=== PATIENT | female | born 1940 | race Caucasian/White ===

== ENCOUNTER → 2016-11-16 | Outpatient (CLI) | payer MEDICARE, BC ==
--- NOTE | 2016-11-16 16:26 | US ---
LOWER EXTREMITY VENOUS INSUFFICIENCY SIDE PERFORMED: Bilateral 1) Color flow is present and patency is documented in the following vessels. No DVT or SVT is noted . ? EIV ? Common Femoral Vein ? Deep Femoral Vein ? Femoral Vein ? Popliteal Vein ? Proximal Calf Veins ? Greater Saph Vein ? Upper Small Saph Vein 2) There is venous reflux noted at the following venous levels: Right GSV, left GSV, and left SSV No popliteal fossa lesion is seen. IMPRESSION: REFLUX DESCRIBED.
--- NOTE | 2016-11-21 12:11 | P.ARTDOP ---
Arterial Doppler LOWER EXTREMITY ARTERIAL DOPPLER: DATE OF SERVICE: 11/16/2016 Reason for study: Right ankle ulcer Doppler waveforms: Multiphasic throughout on the left and to the tibial on the right. Dorsalis pedis on the right is monophasic. Pulse volume recording: Normal configuration to the metatarsal and digital level which are both very blunted. Pressure gradients: Mild gradient above the ankle on the left and no gradient on the right above the ankle level. Significant gradient to the foot level.. Ankle-brachial indices: Greater than 1 on the right. 0.8 for the left.. Toe pressures: 31 on the right, 31 on the left Impression: Proximal at the ankle above the studies looked fairly normal. At the toe level they are severely blunted which is either vasospastic or severe distal disease. Clinical correlation recommended..
== END | disposition home or self-care (01) ==
LOC: RADUSWWP 14:18
PROVIDERS: ATTEND Family Medicine
DX: I87.2 Venous insufficiency (chronic) (peripheral) (principal); M79.604 Pain in right leg
CPT/HCPCS: 93923; 93970

== ENCOUNTER 2018-09-14 17:19 | Inpatient (IN) | payer MEDICARE, BC ==
[2018-09-14] MEDS ORDERED: MORPHINE SULFATE 4 MG/ML SYRINGE IV STA (17:34)
[2018-09-14] MEDS ORDERED: ONDANSETRON 4 MG/2 ML VIAL IVP STA (17:34)
[2018-09-14] MEDS ORDERED: SODIUM CHLORIDE 0.9% 1,000 ML IV STA (17:34)
[2018-09-14 17:51] LABS: Basophils # (A) 0.1 k/uL (0-0.2); Basophils % (A) 0 %; Eosinophils # (A) 0.1 k/uL (0-0.7); Eosinophils % (A) 1 %; HCT 44.1 % (34.0-46.0); HGB 14.4 gm/dL (11.4-16.0); Lymphocytes # (A) 3.5 k/uL (1.0-4.8); Lymphocytes % (A) 26 %; MCH 29.6 pg (25.0-35.0); MCHC 32.6 g/dL (31.0-37.0); MCV 90.8 fL (80.0-100.0); Mean Platelet Volume 7.1; Monocytes # (A) 0.5 k/uL (0-1.0); Monocytes % (A) 4 %; Neutrophils # (A) 9.2 k/uL (1.3-7.7); Neutrophils % (A) 68 %; Platelet Count 218 k/uL (150-450); RBC 4.86 m/uL (3.80-5.40); RDW 13.8 % (11.5-15.5); WBC 13.6 k/uL (3.8-10.6)
[2018-09-14 18:02] LABS: ALT 35 U/L (9-52); AST 28 U/L (14-36); Albumin 4.2 g/dL (3.5-5.0); Alkaline Phosphatase 58 U/L (38-126); Amylase 55 U/L (30-110); Anion Gap 6 mmol/L; Blood Urea Nitrogen 20 mg/dL (7-17); Calcium 9.6 mg/dL (8.4-10.2); Carbon Dioxide 28 mmol/L (22-30); Chloride 104 mmol/L (98-107); Glucose 121 mg/dL (74-99); Lipase 95 U/L (23-300); Potassium 4.4 mmol/L (3.5-5.1); Sodium 138 mmol/L (137-145); Total Bilirubin 0.8 mg/dL (0.2-1.3)
--- NOTE | 2018-09-14 18:25 | CT ---
EXAMINATION TYPE: CT abdomen pelvis wo con DATE OF EXAM: 09/14/2018 HISTORY: Generalized abdominal and back pain. CT DLP: 468 mGycm. Automated Exposure Control for Dose Reduction was Utilized. TECHNIQUE: CT scan of the abdomen and pelvis is performed without oral or IV contrast. COMPARISON: NONE FINDINGS: Within the limitations of a non-contrast study, the following observations are made. LUNG BASES: Bibasilar scarring versus atelectasis. No suspicious pulmonary nodules or masses. LIVER/GB: No significant abnormality is appreciated. The gallbladder is surgically absent. PANCREAS: No significant abnormality. SPLEEN: No significant abnormality. ADRENALS: No significant abnormality. KIDNEYS: No significant abnormality. Ureters are unremarkable. BOWEL: Stacked loops of dilated small bowel in the right mid abdomen with a scattered air-fluid level s. There is no evidence of focal obstruction or abrupt transition of luminal diameter. There is surro unding mesenteric fat inflammation in this region as well as fecal-type material within these abnorma l loops of small bowel. The large bowel is unremarkable. What is thought to represent the appendix is normal. GENITAL ORGANS: No gross abnormality seen. LYMPH NODES: No greater than 1cm abdominal or pelvic lymph nodes are appreciated. OSSEOUS STRUCTURES: No acute osseous pathology. Unilateral right sided L4-L5 lumbar fusion with assoc iated laminectomy. Multilevel degenerative changes of the spine and hips. Surgical clips are seen in the right inguinal region. VESSELS: Atheromatous plaquing throughout the abdominal aorta and its branches. IMPRESSION: 1. Moderately dilated loops of small bowel with air-fluid levels in the right mid abdomen and surroun ding mesenteric inflammatory changes. Small bowel feces sign is also present at this location. Etiolo gies may relate to early obstruction versus ileus. Serial radiographs are recommended. Small bowel fo llow-through study may be of further diagnostic value. 2. Postsurgical changes.
[2018-09-14] MEDS ORDERED: ONDANSETRON 4 MG/2 ML VIAL IVP PRN (19:25)
[2018-09-14] MEDS ORDERED: NALOXONE 0.4 MG/ML 1 ML VIAL IV PRN (19:25)
[2018-09-14] MEDS ORDERED: MORPHINE SULFATE 4 MG/ML SYRINGE IV PRN (19:25)
--- NOTE | 2018-09-14 19:25 | ED ---
Abdominal Pain HPI <Jhony Sultana - Last Filed: 09/14/18 19:31> - General Source: patient, RN notes reviewed Mode of arrival: ambulatory Limitations: no limitations <Bruce Dc - Last Filed: 09/14/18 19:38> - General Chief Complaint: Abdominal Pain Stated Complaint: Abd Pain Time Seen by Provider: 09/14/18 17:30 - History of Present Illness Initial Comments: 78-year-old female sent emergency Department chief complaint abdominal pain. Patient states that started around 11 PM last night states has continued. Patient states that she's had decreased output normally has a bowel movement today but states that she only had one maybe 2 small ones. Patient states she feels bloated, distended. Patient had nausea no vomiting. Patient had bowel resection secondary to perforated bowel from prior hysterectomy. Patient is also cholecystectomy. No recent surgery history. Does not see a current surgeon. Patient reports no dysuria no hematuria. (Bruce Dc) - Related Data Home Medications Medication Instructions Recorded Confirmed Cholecalciferol [Vitamin D3] 5,000 unit PO DAILY@1200 01/16/14 09/14/18 Loratadine [Claritin] 10 mg PO DAILY 01/16/14 09/14/18 Montelukast [Singulair] 10 mg PO DAILY 01/16/14 09/14/18 Omeprazole [PriLOSEC] 20 mg PO DAILY 01/16/14 09/14/18 Telmisartan [Micardis] 40 mg PO DAILY 01/16/14 09/14/18 Ascorbic Acid [Vitamin C] 500 mg PO DAILY 10/31/16 09/14/18 Aspirin [Adult Low Dose Aspirin EC] 81 mg PO Q48H 10/31/16 09/14/18 Calcium Carbonate [Calcium] 600 mg PO BID 10/31/16 09/14/18 HYDROcodone/APAP 5-325MG [[place] 1 tab PO DAILY PRN 10/31/16 09/14/18 5-325] Vitamin B Complex 1 cap PO DAILY 10/31/16 09/14/18 Vitamin E 100 unit PO DAILY 07/09/17 09/14/18 Fluticasone/Salmeterol [Advair 2 puff INHALATION RT-DAILY 09/14/18 09/14/18 500-50 Diskus] Meclizine [Antivert] 25 mg PO TID PRN 09/14/18 09/14/18 sitaGLIPtin [Januvia] 100 mg PO DAILY 09/14/18 09/14/18 Allergies Allergy/AdvReac Type Severity Reaction Status Date / Time iodine AdvReac Itching Verified 09/14/18 18:28 minerals [From Enviro Stress] AdvReac Itching Verified 09/14/18 18:28 propoxyphene HCl AdvReac Unknown Verified 09/14/18 18:28 [From Darvon] Sulfa (Sulfonamide AdvReac Rash/Hives Verified 09/14/18 18:28 Antibiotics) vitamin E (d-alpha AdvReac Itching Verified 09/14/18 18:28 tocopherol) [From Enviro Stress] Review of Systems ROS Other: All systems not noted in ROS Statement are negative. <Jhony Sultana - Last Filed: 09/14/18 19:31> ROS Other: All systems not noted in ROS Statement are negative. <Bruce Dc - Last Filed: 09/14/18 19:38> ROS Statement: Those systems with pertinent positive or pertinent negative responses have been documented in the HPI. Past Medical History Past Medical History: Asthma, Diabetes Mellitus, Fibromyalgia, GERD/Reflux, Hypertension, Osteoarthritis (OA), Skin Disorder Additional Past Medical History / Comment(s): wound rt leg History of Any Multi-Drug Resistant Organisms: None Reported Past Surgical History: Back Surgery, Breast Surgery, Cholecystectomy, Hysterectomy, Orthopedic Surgery, Tonsillectomy Additional Past Surgical History / Comment(s): bowel resection, colostomy with reversal, romeo carpal tunnel and "locked fingers" Past Anesthesia/Blood Transfusion Reactions: Motion Sickness Past Psychological History: No Psychological Hx Reported Smoking Status: Never smoker Past Alcohol Use History: None Reported Past Drug Use History: None Reported - Past Family History Sister(s) Family Medical History: Cancer Additional Family Medical History / Comment(s): breast cancer Mother Family Medical History: Diabetes Mellitus Father Family Medical History: No Reported History <Bruce Dc - Last Filed: 09/14/18 19:38> General Exam Limitations: no limitations General appearance: alert, in no apparent distress Head exam: Present: atraumatic, normocephalic, normal inspection Respiratory exam: Present: normal lung sounds bilaterally. Absent: respiratory distress, wheezes, rales, rhonchi, stridor Cardiovascular Exam: Present: regular rate, normal rhythm, normal heart sounds. Absent: systolic murmur, diastolic murmur, rubs, gallop, clicks GI/Abdominal exam: Present: soft, distended, tenderness (Moderate lower), normal bowel sounds. Absent: guarding, rebound, rigid Back exam: Absent: CVA tenderness (R), CVA tenderness (L) Skin exam: Present: warm, dry, intact, normal color. Absent: rash <Bruce Dc - Last Filed: 09/14/18 19:38> Vital Signs 09/14/18 09/14/18 17:20 18:55 Temperature 98.3 F Pulse Rate 62 96 Respiratory 18 18 Rate Blood Pressure 161/110 132/72 O2 Sat by Pulse 100 98 Oximetry Medical Decision Making - Lab Data Result diagrams: 09/14/18 17:41 09/14/18 17:41 <Jhony Sultana - Last Filed: 09/14/18 19:31> - Lab Data Result diagrams: 09/14/18 17:41 09/14/18 17:41 <Bruce Dc - Last Filed: 09/14/18 19:38> - Medical Decision Making Medical decision making; this is an 78-year-old female here with family. The patient is here because of decreased bowel movements. She does have a small bowel movement today and passed a small amount of gas today. Patient has had multiple surgeries in the past because of bowel obstruction with resection. The patient had labs done which showed a white count of 13.6 hemoglobin 14 hematocrit of 44. The patient's BUN is 20 creatinine 0.61 the GFR 86. The patient's CAT scan was done and the radiologist reports; moderately dilated loops of small bowel with air-fluid levels in the right midabdomen and surrounding mesenteric inflammatory changes. Small bowel feces sign is also present at this location. Etiologies may relate to early obstruction versus ileus. Serial radiographs are recommended. Small bowel follow-through study may be of further diagnostic value. 2 postsurgical changes. As read by Dr. Dietz I examine the patient's abdomen. It is mildly tympanitic with gurgling sounds. Patient feels bloated, mild nausea no vomiting. She states she did pass gas today had a small bowel movement which is less than she normally does. No guarding or referred pain noted on examination at this time. I discussed the case with Dr. Meyers on-call for Dr. Miller. The patient had requested Dr. Platt. Dr. Meyers wants the patient to be kept nothing by mouth, NG tube if she vomits. Rehydration. And consult with Dr. Platt requested. Dr. Sultana (Jhony Sultana) 78-year-old female presented for abdominal pain. CT, lab work were obtained. Evidence of early small bowel obstruction versus ileus. Patient symptoms more consistent with small bowel traction patient will be admitted for IV hydration, pain control, antiemetics. Family is requesting Dr. tran for surgery consult. (Bruce Dc) - Lab Data Lab Results 09/14/18 09/14/18 09/14/18 Range/Units 17:41 17:41 17:41 WBC 13.6 H (3.8-10.6) k/uL RBC 4.86 (3.80-5.40) m/uL Hgb 14.4 (11.4-16.0) gm/dL Hct 44.1 (34.0-46.0) % MCV 90.8 (80.0-100.0) fL MCH 29.6 (25.0-35.0) pg MCHC 32.6 (31.0-37.0) g/dL RDW 13.8 (11.5-15.5) % Plt Count 218 (150-450) k/uL Neutrophils % 68 % Lymphocytes % 26 % Monocytes % 4 % Eosinophils % 1 % Basophils % 0 % Neutrophils # 9.2 H (1.3-7.7) k/uL Lymphocytes # 3.5 (1.0-4.8) k/uL Monocytes # 0.5 (0-1.0) k/uL Eosinophils # 0.1 (0-0.7) k/uL Basophils # 0.1 (0-0.2) k/uL Sodium 138 (137-145) mmol/L Potassium 4.4 (3.5-5.1) mmol/L Chloride 104 (98-107) mmol/L Carbon Dioxide 28 (22-30) mmol/L Anion Gap 6 mmol/L BUN 20 H (7-17) mg/dL Creatinine 0.61 (0.52-1.04) mg/dL Est GFR (CKD-EPI)AfAm >90 (>60 ml/min/1.73 sqM) Est GFR (CKD-EPI)NonAf 86 (>60 ml/min/1.73 sqM) Glucose 121 H (74-99) mg/dL Plasma Lactic Acid Jewel 1.0 (0.7-2.0) mmol/L Calcium 9.6 (8.4-10.2) mg/dL Total Bilirubin 0.8 (0.2-1.3) mg/dL AST 28 (14-36) U/L ALT 35 (9-52) U/L Alkaline Phosphatase 58 (38-126) U/L Total Protein 7.0 (6.3-8.2) g/dL Albumin 4.2 (3.5-5.0) g/dL Amylase 55 (30-110) U/L Lipase 95 (23-300) U/L Disposition <Jhony Sultana - Last Filed: 09/14/18 19:31> <Bruce Dc - Last Filed: 09/14/18 19:38> Clinical Impression: Abdominal pain, Small bowel obstruction Disposition: ADMITTED IP TO THIS [facility] Condition: Stable Referrals: Armani Miller MD [Primary Care Provider] - 1-2 days
[2018-09-14] MEDS: SODIUM CHLORIDE 0.9% 1,000 ML IV SCH (19:58)
[2018-09-14 21:16] LABS: Appearance,Urine Clear (Clear); Bilirubin,Urine Negative (Negative); Blood,Urine Negative (Negative); Color,Urine Light Yellow; Glucose,Urine (UA) Negative (Negative); Ketones,Urine Negative (Negative); Leukocyte Esterase,Urine Small (Negative); Mucus,Urine Occasional /hpf; Nitrite,Urine Negative (Negative); Protein,Urine Negative (Negative); Squamous Epithelial Cell,Urine <1 /hpf (0-4); Urobilinogen,Urine <2.0 mg/dL (<2.0); WBC,Urine 2 /hpf (0-5)
[2018-09-15] MEDS: PANTOPRAZOLE 40 MG/10 ML VIAL IV SCH (07:43)
[2018-09-15] MEDS: SODIUM CHLORIDE 0.9% 1,000 ML IV SCH ×2 (07:45→21:23)
[2018-09-15 11:14] LABS: Glucose,Whole Blood 81 mg/dL (75-99)
[2018-09-15] MEDS: INSULIN ASPART 100 UNIT/ML 1 ML 10 ML VIAL SQ SCH ×3 (11:39→21:22)
[2018-09-15] MEDS: LEVOFLOXACIN 500MG-D5W PMX 500 MG in DEXTROSE/WATER 1 100ML.BAG IVPB SCH (13:18)
--- NOTE | 2018-09-15 13:18 | XR ---
EXAMINATION TYPE: XR abdomen 2V DATE OF EXAM: 09/15/2018 12:59 PM CLINICAL HISTORY: Abdominal pain. Follow-up for ileus. TECHNIQUE: Single supine KUB image of the abdomen is obtained. COMPARISON: CT dated 09/14/2018. FINDINGS: Scattered gas is seen in nondilated small bowel loops. Gas and fecal material is seen in no ndilated colon. Cholecystectomy clips are noted in the right upper quadrant. Postsurgical changes are seen of the lower lumbar spine. Surgical clips are also seen within the right breast and within the right low pelvis. Heterotopic ossification is noted of the iliac crests. The lung bases are clear and the osseous structures are intact. IMPRESSION: No dilated loops of large or small bowel. Nonobstructive bowel gas pattern.
--- NOTE | 2018-09-15 13:51 | P.GSCN ---
History of Present Illness Consult date: 09/15/18 Reason for Consult: Small bowel obstruction History of present illness: Patient presents to the hospital with a less than 24 hour history of abdominal pain. Pain described as being diffuse and crampy at times. Slightly increased in the right lower abdomen. Patient is a history of multiple bowel surgeries including colostomy and colostomy reversal. She has had previous obstructions. She states her last bowel obstruction was treated nonoperatively. She is not sure how long ago that was however. Patient typically has 2-3 bowel movements per day but has noticeable decline in her bowel function over the last 2-3 days. Some nausea but no vomiting. Abdominal CAT scan was performed after she presented to the ER. CAT scan shows dilated proximal small bowel loops. Transition point right lower quadrant suspected. Small bowel obstruction thought likely related to adhesions. White blood cell count slightly elevated at 13. She appears more comfortable today. Has not had any narcotics since reaching the floor. Review of Systems The patient denies any acute changes in vision or hearing, no dysphagia or odynophagia, no chest pain or shortness of breath, no dysuria or hematuria, no headache, no runny nose, no rectal bleeding or melena, no unexplained weight loss Past Medical History Past Medical History: Asthma, Diabetes Mellitus, Fibromyalgia, GERD/Reflux, Hypertension, Osteoarthritis (OA), Skin Disorder Additional Past Medical History / Comment(s): wound rt leg History of Any Multi-Drug Resistant Organisms: None Reported Past Surgical History: Back Surgery, Breast Surgery, Cholecystectomy, Hysterectomy, Orthopedic Surgery, Tonsillectomy Additional Past Surgical History / Comment(s): bowel resection, colostomy with reversal, romeo carpal tunnel and "locked fingers" Past Anesthesia/Blood Transfusion Reactions: Motion Sickness Past Psychological History: No Psychological Hx Reported Smoking Status: Never smoker Past Alcohol Use History: None Reported Past Drug Use History: None Reported - Past Family History Sister(s) Family Medical History: Cancer Additional Family Medical History / Comment(s): breast cancer Mother Family Medical History: Diabetes Mellitus Father Family Medical History: No Reported History Medications and Allergies Home Medications Medication Instructions Recorded Confirmed Type Cholecalciferol [Vitamin D3] 5,000 unit PO DAILY@1200 01/16/14 09/14/18 History Loratadine [Claritin] 10 mg PO DAILY 01/16/14 09/14/18 History Montelukast [Singulair] 10 mg PO DAILY 01/16/14 09/14/18 History Omeprazole [PriLOSEC] 20 mg PO DAILY 01/16/14 09/14/18 History Telmisartan [Micardis] 40 mg PO DAILY 01/16/14 09/14/18 History Ascorbic Acid [Vitamin C] 500 mg PO DAILY 10/31/16 09/14/18 History Aspirin [Adult Low Dose Aspirin EC] 81 mg PO Q48H 10/31/16 09/14/18 History Calcium Carbonate [Calcium] 600 mg PO BID 10/31/16 09/14/18 History HYDROcodone/APAP 5-325MG [[place] 1 tab PO DAILY PRN 10/31/16 09/14/18 History 5-325] Vitamin B Complex 1 cap PO DAILY 10/31/16 09/14/18 History Vitamin E 100 unit PO DAILY 07/09/17 09/14/18 History Fluticasone/Salmeterol [Advair 2 puff INHALATION RT-DAILY 09/14/18 09/14/18 History 500-50 Diskus] Meclizine [Antivert] 25 mg PO TID PRN 09/14/18 09/14/18 History sitaGLIPtin [Januvia] 100 mg PO DAILY 09/14/18 09/14/18 History Allergies Allergy/AdvReac Type Severity Reaction Status Date / Time iodine AdvReac Itching Verified 09/14/18 18:28 minerals [From Enviro Stress] AdvReac Itching Verified 09/14/18 18:28 propoxyphene HCl AdvReac Unknown Verified 09/14/18 18:28 [From Darvon] Sulfa (Sulfonamide AdvReac Rash/Hives Verified 09/14/18 18:28 Antibiotics) vitamin E (d-alpha AdvReac Itching Verified 09/14/18 18:28 tocopherol) [From Enviro Stress] Surgical - Exam Vital Signs Temp Pulse Resp BP Pulse Ox 98.3 F 62 18 161/110 100 09/14/18 17:20 09/14/18 17:20 09/14/18 17:20 09/14/18 17:20 09/14/18 17:20 Physical exam: General: Well-developed, well-nourished HEENT: Normocephalic, sclerae nonicteric Abdomen: Mild distention, mild diffuse tenderness increased right lower quadrant Extremities: No edema Neuro: Alert and oriented Results - Labs 09/14/18 17:41 09/14/18 17:41 Abnormal Lab Results - Last 24 Hours (Table) 09/14/18 09/14/18 09/14/18 Range/Units 17:41 17:41 19:45 WBC 13.6 H (3.8-10.6) k/uL Neutrophils # 9.2 H (1.3-7.7) k/uL BUN 20 H (7-17) mg/dL Glucose 121 H (74-99) mg/dL Ur Leukocyte Esterase Small H (Negative) Urine Mucus Occasional H (None) /hpf Diabetes panel 09/14/18 Range/Units 17:41 Sodium 138 (137-145) mmol/L Potassium 4.4 (3.5-5.1) mmol/L Chloride 104 (98-107) mmol/L Carbon Dioxide 28 (22-30) mmol/L BUN 20 H (7-17) mg/dL Creatinine 0.61 (0.52-1.04) mg/dL Glucose 121 H (74-99) mg/dL Calcium 9.6 (8.4-10.2) mg/dL AST 28 (14-36) U/L ALT 35 (9-52) U/L Alkaline Phosphatase 58 (38-126) U/L Total Protein 7.0 (6.3-8.2) g/dL Albumin 4.2 (3.5-5.0) g/dL Calcium panel 09/14/18 Range/Units 17:41 Calcium 9.6 (8.4-10.2) mg/dL Albumin 4.2 (3.5-5.0) g/dL Pituitary panel 09/14/18 Range/Units 17:41 Sodium 138 (137-145) mmol/L Potassium 4.4 (3.5-5.1) mmol/L Chloride 104 (98-107) mmol/L Carbon Dioxide 28 (22-30) mmol/L BUN 20 H (7-17) mg/dL Creatinine 0.61 (0.52-1.04) mg/dL Glucose 121 H (74-99) mg/dL Calcium 9.6 (8.4-10.2) mg/dL Adrenal panel 09/14/18 Range/Units 17:41 Sodium 138 (137-145) mmol/L Potassium 4.4 (3.5-5.1) mmol/L Chloride 104 (98-107) mmol/L Carbon Dioxide 28 (22-30) mmol/L BUN 20 H (7-17) mg/dL Creatinine 0.61 (0.52-1.04) mg/dL Glucose 121 H (74-99) mg/dL Calcium 9.6 (8.4-10.2) mg/dL Total Bilirubin 0.8 (0.2-1.3) mg/dL AST 28 (14-36) U/L ALT 35 (9-52) U/L Alkaline Phosphatase 58 (38-126) U/L Total Protein 7.0 (6.3-8.2) g/dL Albumin 4.2 (3.5-5.0) g/dL Assessment and Plan Assessment: Impression: Small bowel obstruction secondary to adhesions Plan: Continue nothing by mouth except for ice chips. Ambulate. Repeat abdominal x-rays performed this afternoon showed a nonobstructive gas pattern which is encouraging but still does not eliminate the possibility of persistent underlying small bowel obstruction. Repeat labs tomorrow. We'll follow closely with you.
[2018-09-15] MEDS ORDERED: ENALAPRILAT 1.25 MG/ML 1 ML VIAL IVP PRN (13:58)
--- NOTE | 2018-09-15 14:02 | P.HPIM ---
History of Present Illness H&P Date: 09/15/18 Chief Complaint: Abdominal pain This is a pleasant 78-year-old female patient of Dr. Miller. She has underlying history of diabetes mellitus type 2, fibromyalgia, asthma, hypertension Osteoarthritis. She presents emergency room with acute abdominal pain, generalized nature. Pain more towards the right lower quadrant area, started at 11 PM last night. Patient has prior episode of bowel perforation from 40 years ago as a result from complicated hysterectomy, similar episode 20 years ago. She had any bowel resection 40 years ago approximately 1 foot was taken out as result of the complicated hysterectomy. Patient presents with increasing abdominal pain with nausea and abdominal discomfort patient has no emesis however she does have some nausea and abdominal distention. No fever no chills, patient denies any hematuria or melena hematochezia. Patient was seen in the emergency room for which imaging studies were done showing stacked loops of dilated bowel sounds in the right mid abdomen with scattered air-fluid levels, no evidence of focal obstruction or abrupt transition point in the luminal diameter, there is surrounding mesenteric fat inflammation this region as well as fecal-type material within this abnormal loops of bowels or large bowel is unremarkable, what was thought to present the appendix is normal there is bibasilar scarring against atelectasis, no pulmonary nodules, spleen and adrenals kidneys are unremarkable there's also unilateral right-sided L4-L5 lumbar fusion with associated laminectomy, suspicion of early obstruction against ileus. WBC 13.6, creatinine 0.6, liver function test is normal urinalysis is normal lipase is normal. Patient was admitted with consultation to Gen. surgery Dr. Castro patient is made nothing by mouth. She is concerned about the [place] trip coming up this Saturday Review of Systems Constitutional: Reports as per HPI, Reports chills, Denies anorexia, Denies chronic headaches, Denies chronic pain, Denies daytime sleepiness, Denies fatigue, Denies fever, Denies lethargy, Denies malaise, Denies night sweats, Denies poor appetite, Denies sweats, Denies weakness, Denies weight gain, Denies weight loss Ears, nose, mouth and throat: Reports as per HPI, Denies ant. neck pain, Denies bleeding gums, Denies dental pain, Denies dysphagia, Denies epistaxis, Denies headache, Denies hoarseness, Denies mouth pain, Denies nasal congestion, Denies nasal discharge, Denies neck fullness/pressure, Denies neck lump, Denies nose pain, Denies odynophagia, Denies post-nasal drip, Denies sinus pain, Denies sinus pressure, Denies swelling in mouth, Denies swelling in throat, Denies sore throat, Denies vertigo, Denies voice changes Cardiovascular: Reports as per HPI, Denies chest pain, Denies claudication, Denies decreased exercise tolerance, Denies dyspnea on exertion, Denies edema, Denies high blood pressure, Denies irregular heart beat, Denies leg edema, Denies lightheadedness, Denies orthopnea, Denies palpitations, Denies paroxysmal nocturnal dyspnea, Denies phlebitis, Denies rapid heart beat, Denies shortness of breath, Denies syncope Respiratory: Reports as per HPI, Denies congestion, Denies cough, Denies cough with sputum, Denies dyspnea, Denies excessive sputum, Denies hemoptysis, Denies home oxygen, Denies pain, Denies pain on inspiration, Denies pleurisy, Denies respiratory infections, Denies sleep apnea, Denies snoring, Denies wheezing Gastrointestinal: Reports as per HPI, Reports abdominal pain, Reports belching, Reports bloating, Reports change in bowel habits, Reports constipation, Reports indigestion, Reports nausea, Denies BRBPR, Denies coffee ground emesis, Denies diarrhea, Denies dyspepsia, Denies early satiety, Denies excessive gas, Denies heartburn, Denies hematemesis, Denies hematochezia, Denies jaundice, Denies lactose intolerance, Denies loss of appetite, Denies melena, Denies vomiting Genitourinary: Reports as per HPI, Denies difficulty voiding, Denies dysuria, Denies flank pain, Denies genital sores, Denies hematuria, Denies hot flashes, Denies incomplete emptying, Denies kidney stones, Denies mixed incontinence, Denies nocturia, Denies pelvic pain, Denies post void dribbling, Denies , Denies prolapse symptoms, Denies stress incontinence, Denies urge incontinence , Denies urgency, Denies urinary frequency, Denies vaginal discharge, Denies vaginal dryness, Denies vaginal itching, Denies vaginal odor Menstruation: Reports as per HPI, Reports post hysterectomy Musculoskeletal: Reports as per HPI, Denies arm numbness/tingling, Denies atrophy, Denies fractures, Denies frequent falls, Denies gait dysfunction, Denies hot joints, Denies leg numbness/tingling, Denies limitation of motion, Denies loss of height, Denies low back pain, Denies morning stiffness, Denies muscle cramps, Denies muscle weakness, Denies myalgias, Denies neck pain, Denies neck stiffness, Denies prior amputations, Denies redness of joints, Denies shooting arm pain, Denies shooting leg pain Integumentary: Reports as per HPI, Denies acne, Denies boils, Denies brittle nails, Denies change in hair/nails, Denies color changes, Denies darkening of skin, Denies depigmentation, Denies dryness, Denies foot/leg ulcers, Denies growths, Denies hirsutism, Denies lesions, Denies onychomycosis, Denies pruritus , Denies rash, Denies sores, Denies striae, Denies unusual bruising, Denies wounds Neurological: Reports as per HPI, Denies aphasia, Denies ataxia, Denies balance difficulties, Denies burning pain, Denies change in mentation, Denies change in smell/taste, Denies change in speech, Denies confusion, Denies convulsions, Denies double vision, Denies gait dysfunction, Denies head injury, Denies headaches, Denies hearing difficulties, Denies lack of coordination, Denies loss of vision, Denies memory loss, Denies migraines, Denies motor disturbance, Denies numbness, Denies paralysis, Denies paresthesias, Denies seizures, Denies sensory deficit, Denies spasticity, Denies syncope, Denies tic, Denies tingling , Denies transient paralysis, Denies tremors, Denies vertigo, Denies weakness, Denies visual changes Psychiatric: Reports as per HPI, Denies anhedonia, Denies anxiety, Denies anxiety attacks, Denies change in appetite, Denies change in libido, Denies change in sleep habits, Denies confusion, Denies depression, Denies difficulty concentrating, Denies disorientation, Denies hallucinations, Denies hopelessness , Denies hypersomnia, Denies insomnia, Denies irritability, Denies memory loss, Denies mood swings, Denies paranoia, Denies sadness/tearfulness, Denies sleep disturbances, Denies suicidal ideation Endocrine: Reports as per HPI, Denies cold intolerance, Denies deepening of the voice, Denies excessive sweating, Denies excessive thirst, Denies fatigue, Denies flushing, Denies heat intolerance, Denies high blood sugars, Denies increase in ring/shoe/hat size, Denies low blood sugars, Denies nocturia, Denies palpitations, Denies polydipsia, Denies polyphagia, Denies polyuria, Denies proptosis, Denies recent glucocorticoid use, Denies thyroid mass, Denies weight change Hematologic/Lymphatic: Reports as per HPI, Denies easy bleeding, Denies easy bruising, Denies lymphadenopathy, Denies lymphedema, Denies thrombophilia Allergic/Immunologic: Reports as per HPI, Denies allergic rhinitis, Denies anaphylaxis, Denies angioedema, Denies gluten intolerance, Denies persistent infections, Denies seasonal allergies, Denies urticaria, Denies wheezing Past Medical History Past Medical History: Asthma, Diabetes Mellitus, Fibromyalgia, GERD/Reflux, Hypertension, Osteoarthritis (OA), Skin Disorder Additional Past Medical History / Comment(s): wound rt leg History of Any Multi-Drug Resistant Organisms: None Reported Past Surgical History: Back Surgery, Breast Surgery, Cholecystectomy, Hysterectomy, Orthopedic Surgery, Tonsillectomy Additional Past Surgical History / Comment(s): bowel resection, colostomy with reversal, romeo carpal tunnel and "locked fingers" Past Anesthesia/Blood Transfusion Reactions: Motion Sickness Past Psychological History: No Psychological Hx Reported Smoking Status: Never smoker Past Alcohol Use History: None Reported Past Drug Use History: None Reported - Past Family History Sister(s) Family Medical History: Cancer Additional Family Medical History / Comment(s): breast cancer Mother Family Medical History: Diabetes Mellitus Father Family Medical History: No Reported History Medications and Allergies Home Medications Medication Instructions Recorded Confirmed Type Cholecalciferol [Vitamin D3] 5,000 unit PO DAILY@1200 01/16/14 09/14/18 History Loratadine [Claritin] 10 mg PO DAILY 01/16/14 09/14/18 History Montelukast [Singulair] 10 mg PO DAILY 01/16/14 09/14/18 History Omeprazole [PriLOSEC] 20 mg PO DAILY 01/16/14 09/14/18 History Telmisartan [Micardis] 40 mg PO DAILY 01/16/14 09/14/18 History Ascorbic Acid [Vitamin C] 500 mg PO DAILY 10/31/16 09/14/18 History Aspirin [Adult Low Dose Aspirin EC] 81 mg PO Q48H 10/31/16 09/14/18 History Calcium Carbonate [Calcium] 600 mg PO BID 10/31/16 09/14/18 History HYDROcodone/APAP 5-325MG [[place] 1 tab PO DAILY PRN 10/31/16 09/14/18 History 5-325] Vitamin B Complex 1 cap PO DAILY 10/31/16 09/14/18 History Vitamin E 100 unit PO DAILY 07/09/17 09/14/18 History Fluticasone/Salmeterol [Advair 2 puff INHALATION RT-DAILY 09/14/18 09/14/18 History 500-50 Diskus] Meclizine [Antivert] 25 mg PO TID PRN 09/14/18 09/14/18 History sitaGLIPtin [Januvia] 100 mg PO DAILY 09/14/18 09/14/18 History Allergies Allergy/AdvReac Type Severity Reaction Status Date / Time iodine AdvReac Itching Verified 09/14/18 18:28 minerals [From Enviro Stress] AdvReac Itching Verified 09/14/18 18:28 propoxyphene HCl AdvReac Unknown Verified 09/14/18 18:28 [From Darvon] Sulfa (Sulfonamide AdvReac Rash/Hives Verified 09/14/18 18:28 Antibiotics) vitamin E (d-alpha AdvReac Itching Verified 09/14/18 18:28 tocopherol) [From Enviro Stress] Physical Exam Vitals: Vital Signs Temp Pulse Pulse Resp BP BP Pulse Ox 09/15/18 07:10 16 09/15/18 07:00 97.4 F L 89 17 120/77 97 09/15/18 01:02 97.6 F 77 16 126/71 92 L 09/15/18 00:00 20 09/14/18 21:03 94 20 145/73 97 09/14/18 18:55 96 18 132/72 98 09/14/18 17:20 98.3 F 62 18 161/110 100 Intake and Output 09/14/18 09/15/18 09/15/18 22:59 06:59 14:59 Intake Total 1150 600 Balance 1150 600 Intake: Intake, IV Titration 1150 600 Amount Sodium Chloride 0.9% 1, 150 600 000 ml @ 75 mls/hr IV . [id number] ANGEL Rx#:[id number] Sodium Chloride 0.9% 1, 1000 000 ml @ 999 mls/hr IV . Q1H1M STA Rx#:[id number] Other: Voiding Method Toilet Toilet # Voids 1 2 Weight 69.4 kg 69.4 kg - Constitutional General appearance: cooperative, no acute distress - EENT Eyes: anicteric sclerae, EOMI, PERRLA, dentition normal, normal appearance ENT: hard of hearing, NA/AT, normal oropharynx - Neck Neck: normal ROM - Respiratory Respiratory: bilateral: CTA, negative: diminished, dullness, rales, rhonchi - Cardiovascular Heart sounds: normal: S1, S2 Abnormal Heart Sounds: no systolic murmur, no diastolic murmur, no rub, no S3 Gallop, no S4 Gallop, no click, no other - Gastrointestinal General gastrointestinal: normal bowel sounds, soft, tenderness Localized gastrointestinal: tender: RLQ - Integumentary Integumentary: normal, normal turgor - Neurologic Neurologic: CNII-XII intact - Musculoskeletal Musculoskeletal: gait normal, strength equal bilaterally - Psychiatric Psychiatric: A&O x's 3, appropriate affect, intact judgment & insight Results CBC & Chem 7: 09/15/18 14:27 09/14/18 17:41 Labs: Abnormal Lab Results - Last 24 Hours (Table) 09/14/18 09/14/18 09/14/18 Range/Units 17:41 17:41 19:45 WBC 13.6 H (3.8-10.6) k/uL Neutrophils # 9.2 H (1.3-7.7) k/uL BUN 20 H (7-17) mg/dL Glucose 121 H (74-99) mg/dL Ur Leukocyte Esterase Small H (Negative) Urine Mucus Occasional H (None) /hpf Laboratory Results WBC 13.6 k/uL (3.8-10.6) H 09/14/18 17:41 RBC 4.86 m/uL (3.80-5.40) 09/14/18 17:41 Hgb 14.4 gm/dL (11.4-16.0) 09/14/18 17:41 Hct 44.1 % (34.0-46.0) 09/14/18 17:41 MCV 90.8 fL (80.0-100.0) 09/14/18 17:41 MCH 29.6 pg (25.0-35.0) 09/14/18 17:41 MCHC 32.6 g/dL (31.0-37.0) 09/14/18 17:41 RDW 13.8 % (11.5-15.5) 09/14/18 17:41 Plt Count 218 k/uL (150-450) 09/14/18 17:41 Neutrophils % 68 % 09/14/18 17:41 Lymphocytes % 26 % 09/14/18 17:41 Monocytes % 4 % 09/14/18 17:41 Eosinophils % 1 % 09/14/18 17:41 Basophils % 0 % 09/14/18 17:41 Neutrophils # 9.2 k/uL (1.3-7.7) H 09/14/18 17:41 Lymphocytes # 3.5 k/uL (1.0-4.8) 09/14/18 17:41 Monocytes # 0.5 k/uL (0-1.0) 09/14/18 17:41 Eosinophils # 0.1 k/uL (0-0.7) 09/14/18 17:41 Basophils # 0.1 k/uL (0-0.2) 09/14/18 17:41 Sodium 138 mmol/L (137-145) 09/14/18 17:41 Potassium 4.4 mmol/L (3.5-5.1) 09/14/18 17:41 Chloride 104 mmol/L (98-107) 09/14/18 17:41 Carbon Dioxide 28 mmol/L (22-30) 09/14/18 17:41 Anion Gap 6 mmol/L 09/14/18 17:41 BUN 20 mg/dL (7-17) H 09/14/18 17:41 Creatinine 0.61 mg/dL (0.52-1.04) 09/14/18 17:41 Est GFR (CKD-EPI)AfAm >90 (>60 ml/min/1.73 sqM) 09/14/18 17:41 Est GFR (CKD-EPI)NonAf 86 (>60 ml/min/1.73 sqM) 09/14/18 17:41 Glucose 121 mg/dL (74-99) H 09/14/18 17:41 POC Glucose (mg/dL) 81 mg/dL (75-99) 09/15/18 11:12 POC Glu [employer] Developer ID Brittney Nur 09/15/18 11:12 Plasma Lactic Acid Jewel 1.0 mmol/L (0.7-2.0) 09/14/18 17:41 Calcium 9.6 mg/dL (8.4-10.2) 09/14/18 17:41 Total Bilirubin 0.8 mg/dL (0.2-1.3) 09/14/18 17:41 AST 28 U/L (14-36) 09/14/18 17:41 ALT 35 U/L (9-52) 09/14/18 17:41 Alkaline Phosphatase 58 U/L (38-126) 09/14/18 17:41 Total Protein 7.0 g/dL (6.3-8.2) 09/14/18 17:41 Albumin 4.2 g/dL (3.5-5.0) 09/14/18 17:41 Amylase 55 U/L (30-110) 09/14/18 17:41 Lipase 95 U/L (23-300) 09/14/18 17:41 Urine Color Light Yellow 09/14/18 19:45 Urine Appearance Clear (Clear) 09/14/18 19:45 Urine pH 5.0 (5.0-8.0) 09/14/18 19:45 Ur Specific [place] 1.010 (1.001-1.035) 09/14/18 19:45 Urine Protein Negative (Negative) 09/14/18 19:45 Urine Glucose (UA) Negative (Negative) 09/14/18 19:45 Urine Ketones Negative (Negative) 09/14/18 19:45 Urine Blood Negative (Negative) 09/14/18 19:45 Urine Nitrite Negative (Negative) 09/14/18 19:45 Urine Bilirubin Negative (Negative) 09/14/18 19:45 Urine Urobilinogen <2.0 mg/dL (<2.0) 09/14/18 19:45 Ur Leukocyte Esterase Small (Negative) H 09/14/18 19:45 Urine WBC 2 /hpf (0-5) 09/14/18 19:45 Ur Squamous Epith Cells <1 /hpf (0-4) 09/14/18 19:45 Urine Mucus Occasional /hpf (None) H 09/14/18 19:45 Thrombosis Risk Factor Assmnt - DVT/VTE Prophylaxis DVT/VTE Prophylaxis: Pharmacologic Prophylaxis ordered - Choose All That Apply Any of the Below Risk Factors Present?: Yes Each Factor Represents 1 point: Obesity (BMI >25) Other Risk Factors: Yes Each Risk Factor Represents 3 Points: Age 75 years or older Thrombosis Risk Factor Assessment Total Risk Factor Score: 4 Thrombosis Risk Factor Assessment Level: Moderate Risk Assessment and Plan Plan: 1. Acute abdominal pain, suspected early bowel obstruction against ileus no transition point seen on CT with regional mesenteric fat inflammation in the right mid abdomen small bowel with fecal-type material within this abnormal loops of bowel without any evidence of transition point patient currently is nothing by mouth, general surgery Dr. Ca to see the patient, IV antibiotics will be started secondary to the inflammation, IV Levaquin and Flagyl. Serial x -rays to be done 2. Diabetes mellitus, we'll going to hold off Januvia, Accu-Cheks before meals and at bedtime, and a sliding scale program 3. Mild persistent Asthma currently asymptomatic on maintenance Advair 500/52 puffs daily as well as Singulair 4. Hypertensive cardiac vascular disease on my card is which is currently on hold, we would provide when necessary enalapril for systolic over 160 5. Leukocytosis most likely secondary to GI source, urinalysis is negative IV antibiotics as #1 DVT prophylaxis heparin subcu GI prophylaxis with Protonix
[2018-09-15 15:20] LABS: HCT 43.4 % (34.0-46.0); HGB 13.3 gm/dL (11.4-16.0); Hypochromasia Marked; MCH 29.5 pg (25.0-35.0); MCHC 30.5 g/dL (31.0-37.0); Mean Platelet Volume 6.9; Platelet Count 187 k/uL (150-450); RBC 4.49 m/uL (3.80-5.40); RDW 13.9 % (11.5-15.5); WBC 7.2 k/uL (3.8-10.6)
[2018-09-15 15:22] LABS: MCV 96.6 fL (80.0-100.0)
[2018-09-15] MEDS: HEPARIN SODIUM,PORCINE 5,000 UNIT/ML 1 ML VIAL SQ SCH (15:58)
[2018-09-15] MEDS: metroNIDAZOLE-NS PMX 500 MG in SALINE 1 100ML.BAG IVPB SCH (15:59)
[2018-09-15 16:18] LABS: Glucose,Whole Blood 79 mg/dL (75-99)
[2018-09-15 19:09] LABS: Hemoglobin A1C 6.8 % (4.0-6.0)
[2018-09-15 21:18] LABS: Glucose,Whole Blood 70 mg/dL (75-99)
[2018-09-16] MEDS: HEPARIN SODIUM,PORCINE 5,000 UNIT/ML 1 ML VIAL SQ SCH ×4 (00:11→23:50)
[2018-09-16] MEDS: metroNIDAZOLE-NS PMX 500 MG in SALINE 1 100ML.BAG IVPB SCH ×4 (00:11→23:50)
[2018-09-16 00:15] LABS: Glucose,Whole Blood 100 mg/dL (75-99)
[2018-09-16] MEDS: INSULIN ASPART 100 UNIT/ML 1 ML 10 ML VIAL SQ SCH ×4 (07:21→20:54)
[2018-09-16 07:22] LABS: Glucose,Whole Blood 76 mg/dL (75-99)
[2018-09-16 07:51] LABS: ALT 37 U/L (9-52); AST 23 U/L (14-36); Albumin 3.2 g/dL (3.5-5.0); Alkaline Phosphatase 48 U/L (38-126); Anion Gap 5 mmol/L; Blood Urea Nitrogen 11 mg/dL (7-17); Calcium 8.6 mg/dL (8.4-10.2); Carbon Dioxide 26 mmol/L (22-30); Chloride 109 mmol/L (98-107); Glucose 83 mg/dL (74-99); Sodium 140 mmol/L (137-145); Total Bilirubin 0.7 mg/dL (0.2-1.3); Total Protein 5.5 g/dL (6.3-8.2)
[2018-09-16 08:04] LABS: HCT 36.8 % (34.0-46.0); HGB 11.9 gm/dL (11.4-16.0); MCH 29.5 pg (25.0-35.0); MCHC 32.3 g/dL (31.0-37.0); Platelet Count 177 k/uL (150-450); RBC 4.02 m/uL (3.80-5.40); RDW 13.7 % (11.5-15.5); WBC 6.4 k/uL (3.8-10.6)
[2018-09-16 08:08] LABS: MCV 91.4 fL (80.0-100.0)
[2018-09-16] MEDS: PANTOPRAZOLE 40 MG/10 ML VIAL IV SCH (09:56)
[2018-09-16 11:49] LABS: Glucose,Whole Blood 55 mg/dL (75-99)
[2018-09-16] MEDS ORDERED: DEXTROSE 50%-WATER 50 ML SYRINGE IVP STA (11:57)
[2018-09-16 12:40] LABS: Glucose,Whole Blood 156 mg/dL (75-99)
--- NOTE | 2018-09-16 13:18 | P.PN ---
Subjective Progress Note Date: 09/16/18 Principal diagnosis: Small bowel obstruction Patient had 3 small stools last night that were hard. Remains bloated. Still complaining of right-sided pain. Patient's white blood cell count today is normal. X-rays from yesterday showed no significant obstructive pattern. Objective - Vital Signs Vital signs: Vital Signs Temp 98.5 F 09/16/18 07:00 Pulse 94 09/16/18 07:00 Resp 14 09/16/18 07:00 BP 170/80 09/16/18 07:00 Pulse Ox 98 09/16/18 07:00 Intake & Output 09/15/18 09/16/18 09/16/18 18:59 06:59 18:59 Intake Total 1290 Balance 1290 Intake: Intake, IV Titration 750 Amount Sodium Chloride 0.9% 1, 750 000 ml @ 75 mls/hr IV . [id number] ANGEL Rx#:[id number] Oral 540 Other: Voiding Method Toilet # Voids 3 2 - Exam Abdomen: Soft, mild distention, right-sided tenderness - Labs CBC & Chem 7: 09/16/18 06:43 09/16/18 06:43 Labs: Abnormal Lab Results - Last 24 Hours (Table) 09/14/18 09/15/18 09/15/18 Range/Units 17:41 14:27 21:06 MCHC 30.5 L (31.0-37.0) g/dL Chloride (98-107) mmol/L POC Glucose (mg/dL) 70 L (75-99) mg/dL Hemoglobin A1c 6.8 H (4.0-6.0) % Total Protein (6.3-8.2) g/dL Albumin (3.5-5.0) g/dL 09/16/18 09/16/18 09/16/18 Range/Units 00:14 06:43 11:47 MCHC (31.0-37.0) g/dL Chloride 109 H (98-107) mmol/L POC Glucose (mg/dL) 100 H 55 L (75-99) mg/dL Hemoglobin A1c (4.0-6.0) % Total Protein 5.5 L (6.3-8.2) g/dL Albumin 3.2 L (3.5-5.0) g/dL 09/16/18 Range/Units 12:39 MCHC (31.0-37.0) g/dL Chloride (98-107) mmol/L POC Glucose (mg/dL) 156 H (75-99) mg/dL Hemoglobin A1c (4.0-6.0) % Total Protein (6.3-8.2) g/dL Albumin (3.5-5.0) g/dL Assessment and Plan (1) Small bowel obstruction Narrative/Plan: Clinically the patient seems to still be suffering with some degree of obstruction. We'll repeat abdominal x-rays tomorrow even though thus far they have not been medically very helpful. We'll repeat labs tomorrow as well. Keep nothing by mouth. We'll follow closely with you. Current Visit: Yes Status: Acute Code(s): K56.609 - UNSP INTESTNL OBST, UNSP TO PARTIAL VERSUS COMPLETE OBST SNOMED Code(s): 667740848
--- NOTE | 2018-09-16 14:32 | P.PN ---
Subjective Progress Note Date: 09/16/18 This is a pleasant 78-year-old female patient of Dr. Miller. She has underlying history of diabetes mellitus type 2, fibromyalgia, asthma, hypertension Osteoarthritis. She presents emergency room with acute abdominal pain, generalized nature. Pain more towards the right lower quadrant area, started at 11 PM last night. Patient has prior episode of bowel perforation from 40 years ago as a result from complicated hysterectomy, similar episode 20 years ago. She had any bowel resection 40 years ago approximately 1 foot was taken out as result of the complicated hysterectomy. Patient presents with increasing abdominal pain with nausea and abdominal discomfort patient has no emesis however she does have some nausea and abdominal distention. No fever no chills, patient denies any hematuria or melena hematochezia. Patient was seen in the emergency room for which imaging studies were done showing stacked loops of dilated bowel sounds in the right mid abdomen with scattered air-fluid levels, no evidence of focal obstruction or abrupt transition point in the luminal diameter, there is surrounding mesenteric fat inflammation this region as well as fecal-type material within this abnormal loops of bowels or large bowel is unremarkable, what was thought to present the appendix is normal there is bibasilar scarring against atelectasis, no pulmonary nodules, spleen and adrenals kidneys are unremarkable there's also unilateral right-sided L4-L5 lumbar fusion with associated laminectomy, suspicion of early obstruction against ileus. WBC 13.6, creatinine 0.6, liver function test is normal urinalysis is normal lipase is normal. Patient was admitted with consultation to Gen. surgery Dr. Castro patient is made nothing by mouth. She is concerned about the [place] trip coming up this Saturday 09/16: Repeat lab work is unremarkable. Patient is complaining of right upper quadrant pain. She states she's had a few pellets for bowel movement. She denies any vomiting. She states she has been ambulating. We will plan to start clear liquid diet if cleared by Dr. Ca. Repeat abdominal films ordered for tomorrow. Review of Systems Constitutional: Denies chills, Denies anorexia, Denies chronic headaches, Denies chronic pain, Denies daytime sleepiness, Denies fatigue, Denies fever, Denies lethargy, Denies malaise, Denies night sweats, Denies poor appetite, Denies sweats, Denies weakness, Denies weight gain, Denies weight loss Ears, nose, mouth and throat: Reports as per HPI, Denies ant. neck pain, Denies bleeding gums, Denies dental pain, Denies dysphagia, Denies epistaxis, Denies headache, Denies hoarseness, Denies mouth pain, Denies nasal congestion, Denies nasal discharge, Denies neck fullness/pressure, Denies neck lump, Denies nose pain, Denies odynophagia, Denies post-nasal drip, Denies sinus pain, Denies sinus pressure, Denies swelling in mouth, Denies swelling in throat, Denies sore throat, Denies vertigo, Denies voice changes Cardiovascular: Reports as per HPI, Denies chest pain, Denies claudication, Denies decreased exercise tolerance, Denies dyspnea on exertion, Denies edema, Denies high blood pressure, Denies irregular heart beat, Denies leg edema, Denies lightheadedness, Denies orthopnea, Denies palpitations, Denies paroxysmal nocturnal dyspnea, Denies phlebitis, Denies rapid heart beat, Denies shortness of breath, Denies syncope Respiratory: Reports as per HPI, Denies congestion, Denies cough, Denies cough with sputum, Denies dyspnea, Denies excessive sputum, Denies hemoptysis, Denies home oxygen, Denies pain, Denies pain on inspiration, Denies pleurisy, Denies respiratory infections, Denies sleep apnea, Denies snoring, Denies wheezing Gastrointestinal: Reports as per HPI, Reports abdominal pain, Reports belching, Reports bloating, Reports change in bowel habits, Reports constipation, Reports indigestion, Reports nausea, Denies BRBPR, Denies coffee ground emesis, Denies diarrhea, Denies dyspepsia, Denies early satiety, Denies excessive gas, Denies heartburn, Denies hematemesis, Denies hematochezia, Denies jaundice, Denies lactose intolerance, Denies loss of appetite, Denies melena, Denies vomiting Genitourinary: Reports as per HPI, Denies difficulty voiding, Denies dysuria, Denies flank pain, Denies genital sores, Denies hematuria, Denies hot flashes, Denies incomplete emptying, Denies kidney stones, Denies mixed incontinence, Denies nocturia, Denies pelvic pain, Denies post void dribbling, Denies , Denies prolapse symptoms, Denies stress incontinence, Denies urge incontinence , Denies urgency, Denies urinary frequency, Denies vaginal discharge, Denies vaginal dryness, Denies vaginal itching, Denies vaginal odor Musculoskeletal: Reports as per HPI, Denies arm numbness/tingling, Denies atrophy, Denies fractures, Denies frequent falls, Denies gait dysfunction, Denies hot joints, Denies leg numbness/tingling, Denies limitation of motion, Denies loss of height, Denies low back pain, Denies morning stiffness, Denies muscle cramps, Denies muscle weakness, Denies myalgias, Denies neck pain, Denies neck stiffness, Denies prior amputations, Denies redness of joints, Denies shooting arm pain, Denies shooting leg pain Integumentary: Reports as per HPI, Denies acne, Denies boils, Denies brittle nails, Denies change in hair/nails, Denies color changes, Denies darkening of skin, Denies depigmentation, Denies dryness, Denies foot/leg ulcers, Denies growths, Denies hirsutism, Denies lesions, Denies onychomycosis, Denies pruritus , Denies rash, Denies sores, Denies striae, Denies unusual bruising, Denies wounds Neurological: Reports as per HPI, Denies aphasia, Denies ataxia, Denies balance difficulties, Denies burning pain, Denies change in mentation, Denies change in smell/taste, Denies change in speech, Denies confusion, Denies convulsions, Denies double vision, Denies gait dysfunction, Denies head injury, Denies headaches, Denies hearing difficulties, Denies lack of coordination, Denies loss of vision, Denies memory loss, Denies migraines, Denies motor disturbance, Denies numbness, Denies paralysis, Denies paresthesias, Denies seizures, Denies sensory deficit, Denies spasticity, Denies syncope, Denies tic, Denies tingling , Denies transient paralysis, Denies tremors, Denies vertigo, Denies weakness, Denies visual changes Psychiatric: Reports as per HPI, Denies anhedonia, Denies anxiety, Denies anxiety attacks, Denies change in appetite, Denies change in libido, Denies change in sleep habits, Denies confusion, Denies depression, Denies difficulty concentrating, Denies disorientation, Denies hallucinations, Denies hopelessness , Denies hypersomnia, Denies insomnia, Denies irritability, Denies memory loss, Denies mood swings, Denies paranoia, Denies sadness/tearfulness, Denies sleep disturbances, Denies suicidal ideation Endocrine: Reports as per HPI, Denies cold intolerance, Denies deepening of the voice, Denies excessive sweating, Denies excessive thirst, Denies fatigue, Denies flushing, Denies heat intolerance, Denies high blood sugars, Denies increase in ring/shoe/hat size, Denies low blood sugars, Denies nocturia, Denies palpitations, Denies polydipsia, Denies polyphagia, Denies polyuria, Denies proptosis, Denies recent glucocorticoid use, Denies thyroid mass, Denies weight change Hematologic/Lymphatic: Reports as per HPI, Denies easy bleeding, Denies easy bruising, Denies lymphadenopathy, Denies lymphedema, Denies thrombophilia Allergic/Immunologic: Reports as per HPI, Denies allergic rhinitis, Denies anaphylaxis, Denies angioedema, Denies gluten intolerance, Denies persistent infections, Denies seasonal allergies, Denies urticaria, Denies wheezing Objective - Vital Signs Vital signs: Vital Signs Temp 98.5 F 09/16/18 07:00 Pulse 94 09/16/18 07:00 Resp 14 09/16/18 07:00 BP 170/80 09/16/18 07:00 Pulse Ox 98 09/16/18 07:00 Intake & Output 09/15/18 09/16/18 09/16/18 18:59 06:59 18:59 Intake Total 1290 Balance 1290 Intake: Intake, IV Titration 750 Amount Sodium Chloride 0.9% 1, 750 000 ml @ 75 mls/hr IV . [id number] ANGEL Rx#:[id number] Oral 540 Other: Voiding Method Toilet # Voids 3 2 - Exam General appearance: cooperative, no acute distress - EENT Eyes: anicteric sclerae, EOMI, PERRLA, dentition normal, normal appearance ENT: hard of hearing, NA/AT, normal oropharynx - Neck Neck: normal ROM - Respiratory Respiratory: bilateral: CTA, negative: diminished, dullness, rales, rhonchi - Cardiovascular Heart sounds: normal: S1, S2 Abnormal Heart Sounds: no systolic murmur, no diastolic murmur, no rub, no S3 Gallop, no S4 Gallop, no click, no other - Gastrointestinal General gastrointestinal: normal bowel sounds, soft, tenderness Localized gastrointestinal: tender: RLQ, no organomegaly - Integumentary Integumentary: normal, normal turgor - Neurologic Neurologic: CNII-XII intact - Musculoskeletal Musculoskeletal: gait normal, strength equal bilaterally - Psychiatric Psychiatric: A&O x's 3, appropriate affect, intact judgment & insight - Labs CBC & Chem 7: 09/16/18 06:43 09/16/18 06:43 Labs: Abnormal Lab Results - Last 24 Hours (Table) 09/14/18 09/15/18 09/15/18 Range/Units 17:41 14:27 21:06 MCHC 30.5 L (31.0-37.0) g/dL Chloride (98-107) mmol/L POC Glucose (mg/dL) 70 L (75-99) mg/dL Hemoglobin A1c 6.8 H (4.0-6.0) % Total Protein (6.3-8.2) g/dL Albumin (3.5-5.0) g/dL 09/16/18 09/16/18 Range/Units 00:14 06:43 MCHC (31.0-37.0) g/dL Chloride 109 H (98-107) mmol/L POC Glucose (mg/dL) 100 H (75-99) mg/dL Hemoglobin A1c (4.0-6.0) % Total Protein 5.5 L (6.3-8.2) g/dL Albumin 3.2 L (3.5-5.0) g/dL Assessment and Plan Plan: 1. Acute abdominal pain, suspected early bowel obstruction against ileus no transition point seen on CT with regional mesenteric fat inflammation in the right mid abdomen small bowel with fecal-type material within this abnormal loops of bowel without any evidence of transition point patient currently is nothing by mouth, general surgery Dr. Ca to see the patient, IV antibiotics will be started secondary to the inflammation, IV Levaquin and Flagyl. Repeat abdominal films in the morning. 2. Diabetes mellitus, we'll going to hold off Januvia, Accu-Cheks before meals and at bedtime, and a sliding scale program 3. Mild persistent Asthma currently asymptomatic on maintenance Advair 500/52 puffs daily as well as Singulair 4. Hypertensive cardiac vascular disease on my card is which is currently on hold, we would provide when necessary enalapril for systolic over 160 5. Leukocytosis most likely secondary to GI source, urinalysis is negative IV antibiotics as #1 DVT prophylaxis heparin subcu GI prophylaxis with Protonix Discharge plan: Return home Impression and plan of care have been directed as dictated by the signing physician. Nissa Ledbetter nurse practitioner acting as scribe for signing physician.
[2018-09-16] MEDS: LEVOFLOXACIN 500MG-D5W PMX 500 MG in DEXTROSE/WATER 1 100ML.BAG IVPB SCH (15:14)
[2018-09-16] MEDS: SODIUM CHLORIDE 0.9% 1,000 ML IV SCH (15:18)
[2018-09-16 17:00] LABS: Glucose,Whole Blood 73 mg/dL (75-99)
[2018-09-16 20:53] LABS: Glucose,Whole Blood 76 mg/dL (75-99)
[2018-09-16] MEDS: DEXTROSE 5%-0.45% NACL 1,000 ML IV SCH (21:41)
[2018-09-17 01:53] LABS: Glucose,Whole Blood 100 mg/dL (75-99)
[2018-09-17 07:10] LABS: Glucose,Whole Blood 92 mg/dL (75-99)
[2018-09-17] MEDS: INSULIN ASPART 100 UNIT/ML 1 ML 10 ML VIAL SQ SCH ×4 (07:45→19:58)
--- NOTE | 2018-09-17 08:22 | XR ---
EXAMINATION TYPE: XR abdomen complete w decub DATE OF EXAM: 09/17/2018 COMPARISON: 09/15/2018 INDICATION: Follow up small bowel obstruction TECHNIQUE: Single view abdomen upright view. Supine view is obtained. Lateral decubitus view is somew hat limited due to the oblique status. Patient had difficulty with his. FINDINGS: Normal colonic bowel gas is present. A small amount of nonspecific small bowel gas is present. No matti picious air-fluid levels or differential air-fluid levels are present. No free air is present. Psoas margins are normal. No organomegaly is present. Postsurgical changes with pedicle screws at L4-5 on the right are present. Cholecystectomy clips are present. IMPRESSION: 1. Nonspecific abdomen. Changes to suggest obstruction are not identified.
[2018-09-17 09:10] LABS: Basophils % (A) 0 %; Eosinophils # (A) 0.2 k/uL (0-0.7); Eosinophils % (A) 3 %; HCT 41.1 % (34.0-46.0); HGB 13.2 gm/dL (11.4-16.0); Lymphocytes # (A) 2.4 k/uL (1.0-4.8); Lymphocytes % (A) 36 %; MCH 29.2 pg (25.0-35.0); MCHC 32.1 g/dL (31.0-37.0); Mean Platelet Volume 6.5; Monocytes # (A) 0.3 k/uL (0-1.0); Monocytes % (A) 5 %; Neutrophils # (A) 3.5 k/uL (1.3-7.7); Neutrophils % (A) 53 %; Platelet Count 206 k/uL (150-450); RBC 4.51 m/uL (3.80-5.40); RDW 13.7 % (11.5-15.5); WBC 6.6 k/uL (3.8-10.6)
[2018-09-17] MEDS: HEPARIN SODIUM,PORCINE 5,000 UNIT/ML 1 ML VIAL SQ SCH ×3 (09:14→23:53)
[2018-09-17] MEDS: PANTOPRAZOLE 40 MG/10 ML VIAL IV SCH (09:15)
[2018-09-17] MEDS: metroNIDAZOLE-NS PMX 500 MG in SALINE 1 100ML.BAG IVPB SCH ×3 (10:26→23:53)
--- NOTE | 2018-09-17 10:37 | P.PN ---
Subjective Progress Note Date: 09/17/18 Principal diagnosis: Small bowel obstruction Patient did have a small bowel movement. She still feels bloated and is having right-sided pain. Slightly improved since yesterday. Today's x-rays once again do not reveal any changes suggesting obstruction. She had mild nausea and slight increase in pain with ingestion of a small amount of tea Objective - Vital Signs Vital signs: Vital Signs Temp 98.4 F 09/17/18 07:41 Pulse 91 09/17/18 07:41 Resp 16 09/17/18 07:41 BP 128/71 09/17/18 07:41 Pulse Ox 94 L 09/17/18 07:41 Intake & Output 09/16/18 09/17/18 09/17/18 18:59 06:59 18:59 Intake Total 350 Balance 350 Intake: Oral 350 Other: Voiding Method Toilet # Voids 2 1 - Exam Abdomen: Soft, mild distention, mild right-sided tenderness - Labs CBC & Chem 7: 09/17/18 08:47 09/16/18 06:43 Labs: Abnormal Lab Results - Last 24 Hours (Table) 09/16/18 09/16/18 09/16/18 Range/Units 11:47 12:39 16:58 POC Glucose (mg/dL) 55 L 156 H 73 L (75-99) mg/dL 09/17/18 Range/Units 01:52 POC Glucose (mg/dL) 100 H (75-99) mg/dL Assessment and Plan (1) Small bowel obstruction Narrative/Plan: Patient's x-rays today look okay however the patient's x-rays at the time of her CAT scan showing obstruction were not impressive either. We'll order a small bowel series at this point to better exclude the presence of an active obstruction. Keep nothing by mouth for now. Current Visit: Yes Status: Acute Code(s): K56.609 - UNSP INTESTNL OBST, UNSP TO PARTIAL VERSUS COMPLETE OBST SNOMED Code(s): 984888417
[2018-09-17 12:02] LABS: Glucose,Whole Blood 79 mg/dL (75-99)
--- NOTE | 2018-09-17 12:10 | FL ---
EXAMINATION TYPE: FL small bowel follow through DATE OF EXAM: 09/17/2018 CLINICAL HISTORY: Admitted for small bowel obstruction with severe pain 3 days ago. TECHNIQUE: A single contrast small bowel follow through is performed utilizing barium. A total of 35 seconds of fluoroscopic time is utilized during procedure. 7 images are obtained. COMPARISON: Abdominal x-ray series earlier today. CT abdomen and pelvis from 3 days earlier. FINDINGS: Carcass Trimmer image of the abdomen is not performed as acute abdominal series is unremarkable from earlier today. Cholecystectomy clips are noted. Surgical change right lateral lower spine is noted. The small bowel study shows normal transit to the colon in less than 20 minutes. There is a normal m ucosal fold pattern throughout the small bowel on current study. There is interval resolution of dila jah fluid-filled small bowel loops in the right lower quadrant. There is no evidence of any strictur e or filling defect noted. The terminal ileum is spotted and appears unremarkable currently. IMPRESSION: Interval resolution of partial distal small bowel obstruction presumed on basis of focal adhesion.
--- NOTE | 2018-09-17 14:19 | P.PN ---
Subjective Progress Note Date: 09/17/18 This is a pleasant 78-year-old female patient of Dr. Miller. She has underlying history of diabetes mellitus type 2, fibromyalgia, asthma, hypertension Osteoarthritis. She presents emergency room with acute abdominal pain, generalized nature. Pain more towards the right lower quadrant area, started at 11 PM last night. Patient has prior episode of bowel perforation from 40 years ago as a result from complicated hysterectomy, similar episode 20 years ago. She had any bowel resection 40 years ago approximately 1 foot was taken out as result of the complicated hysterectomy. Patient presents with increasing abdominal pain with nausea and abdominal discomfort patient has no emesis however she does have some nausea and abdominal distention. No fever no chills, patient denies any hematuria or melena hematochezia. Patient was seen in the emergency room for which imaging studies were done showing stacked loops of dilated bowel sounds in the right mid abdomen with scattered air-fluid levels, no evidence of focal obstruction or abrupt transition point in the luminal diameter, there is surrounding mesenteric fat inflammation this region as well as fecal-type material within this abnormal loops of bowels or large bowel is unremarkable, what was thought to present the appendix is normal there is bibasilar scarring against atelectasis, no pulmonary nodules, spleen and adrenals kidneys are unremarkable there's also unilateral right-sided L4-L5 lumbar fusion with associated laminectomy, suspicion of early obstruction against ileus. WBC 13.6, creatinine 0.6, liver function test is normal urinalysis is normal lipase is normal. Patient was admitted with consultation to Gen. surgery Dr. Castro patient is made nothing by mouth. She is concerned about the [place] trip coming up this Saturday 09/16: Repeat lab work is unremarkable. Patient is complaining of right upper quadrant pain. She states she's had a few pellets for bowel movement. She denies any vomiting. She states she has been ambulating. We will plan to start clear liquid diet if cleared by Dr. Ca. Repeat abdominal films ordered for tomorrow. 09/17: Patient has been afebrile, pulse ox 94% on room air, heart rate ran in the 90s, blood pressure 120/71. Repeat hemoglobin 13.2, white count is 6.6, blood sugars run between 79 100. Patient was apparently nauseated this morning. Patient did have a small bowel movement. She continues to have abdominal distention but is better from yesterday. Abdominal x-ray shows nonspecific abdomen. Changes to suggest obstruction are not identified. Dr. Ca ordered a small bowel follow-through that showed interval resolution of partial distal small bowel obstruction presumed on the basis of focal adhesion. Diet has been advanced to clear liquid and full liquid as tolerated by Dr. Ca. Review of Systems Constitutional: Denies chills, Denies anorexia, Denies chronic headaches, Denies chronic pain, Denies daytime sleepiness, Denies fatigue, Denies fever, Denies lethargy, Denies malaise, Denies night sweats, Denies poor appetite, Denies sweats, Denies weakness, Denies weight gain, Denies weight loss Ears, nose, mouth and throat: Reports as per HPI, Denies ant. neck pain, Denies bleeding gums, Denies dental pain, Denies dysphagia, Denies epistaxis, Denies headache, Denies hoarseness, Denies mouth pain, Denies nasal congestion, Denies nasal discharge, Denies neck fullness/pressure, Denies neck lump, Denies nose pain, Denies odynophagia, Denies post-nasal drip, Denies sinus pain, Denies sinus pressure, Denies swelling in mouth, Denies swelling in throat, Denies sore throat, Denies vertigo, Denies voice changes Cardiovascular: Reports as per HPI, Denies chest pain, Denies claudication, Denies decreased exercise tolerance, Denies dyspnea on exertion, Denies edema, Denies high blood pressure, Denies irregular heart beat, Denies leg edema, Denies lightheadedness, Denies orthopnea, Denies palpitations, Denies paroxysmal nocturnal dyspnea, Denies phlebitis, Denies rapid heart beat, Denies shortness of breath, Denies syncope Respiratory: Reports as per HPI, Denies congestion, Denies cough, Denies cough with sputum, Denies dyspnea, Denies excessive sputum, Denies hemoptysis, Denies home oxygen, Denies pain, Denies pain on inspiration, Denies pleurisy, Denies respiratory infections, Denies sleep apnea, Denies snoring, Denies wheezing Gastrointestinal: Reports as per HPI, Reports abdominal pain, Reports belching, Reports bloating, Reports change in bowel habits, Reports constipation, Reports indigestion, Reports nausea, Denies BRBPR, Denies coffee ground emesis, Denies diarrhea, Denies dyspepsia, Denies early satiety, Denies excessive gas, Denies heartburn, Denies hematemesis, Denies hematochezia, Denies jaundice, Denies lactose intolerance, Denies loss of appetite, Denies melena, Denies vomiting Genitourinary: Reports as per HPI, Denies difficulty voiding, Denies dysuria, Denies flank pain, Denies genital sores, Denies hematuria, Denies hot flashes, Denies incomplete emptying, Denies kidney stones, Denies mixed incontinence, Denies nocturia, Denies pelvic pain, Denies post void dribbling, Denies , Denies prolapse symptoms, Denies stress incontinence, Denies urge incontinence , Denies urgency, Denies urinary frequency, Denies vaginal discharge, Denies vaginal dryness, Denies vaginal itching, Denies vaginal odor Musculoskeletal: Reports as per HPI, Denies arm numbness/tingling, Denies atrophy, Denies fractures, Denies frequent falls, Denies gait dysfunction, Denies hot joints, Denies leg numbness/tingling, Denies limitation of motion, Denies loss of height, Denies low back pain, Denies morning stiffness, Denies muscle cramps, Denies muscle weakness, Denies myalgias, Denies neck pain, Denies neck stiffness, Denies prior amputations, Denies redness of joints, Denies shooting arm pain, Denies shooting leg pain Integumentary: Reports as per HPI, Denies acne, Denies boils, Denies brittle nails, Denies change in hair/nails, Denies color changes, Denies darkening of skin, Denies depigmentation, Denies dryness, Denies foot/leg ulcers, Denies growths, Denies hirsutism, Denies lesions, Denies onychomycosis, Denies pruritus , Denies rash, Denies sores, Denies striae, Denies unusual bruising, Denies wounds Neurological: Reports as per HPI, Denies aphasia, Denies ataxia, Denies balance difficulties, Denies burning pain, Denies change in mentation, Denies change in smell/taste, Denies change in speech, Denies confusion, Denies convulsions, Denies double vision, Denies gait dysfunction, Denies head injury, Denies headaches, Denies hearing difficulties, Denies lack of coordination, Denies loss of vision, Denies memory loss, Denies migraines, Denies motor disturbance, Denies numbness, Denies paralysis, Denies paresthesias, Denies seizures, Denies sensory deficit, Denies spasticity, Denies syncope, Denies tic, Denies tingling , Denies transient paralysis, Denies tremors, Denies vertigo, Denies weakness, Denies visual changes Psychiatric: Reports as per HPI, Denies anhedonia, Denies anxiety, Denies anxiety attacks, Denies change in appetite, Denies change in libido, Denies change in sleep habits, Denies confusion, Denies depression, Denies difficulty concentrating, Denies disorientation, Denies hallucinations, Denies hopelessness , Denies hypersomnia, Denies insomnia, Denies irritability, Denies memory loss, Denies mood swings, Denies paranoia, Denies sadness/tearfulness, Denies sleep disturbances, Denies suicidal ideation Endocrine: Reports as per HPI, Denies cold intolerance, Denies deepening of the voice, Denies excessive sweating, Denies excessive thirst, Denies fatigue, Denies flushing, Denies heat intolerance, Denies high blood sugars, Denies increase in ring/shoe/hat size, Denies low blood sugars, Denies nocturia, Denies palpitations, Denies polydipsia, Denies polyphagia, Denies polyuria, Denies proptosis, Denies recent glucocorticoid use, Denies thyroid mass, Denies weight change Hematologic/Lymphatic: Reports as per HPI, Denies easy bleeding, Denies easy bruising, Denies lymphadenopathy, Denies lymphedema, Denies thrombophilia Objective - Vital Signs Vital signs: Vital Signs Temp 98.4 F 09/17/18 07:41 Pulse 91 09/17/18 07:41 Resp 16 09/17/18 07:41 BP 128/71 09/17/18 07:41 Pulse Ox 94 L 09/17/18 07:41 Intake & Output 09/16/18 09/17/18 09/17/18 18:59 06:59 18:59 Intake Total 350 Balance 350 Intake: Oral 350 Other: Voiding Method Toilet Toilet # Voids 2 1 - Exam General appearance: cooperative, no acute distress, patient is ambulating in her room. - EENT Eyes: anicteric sclerae, EOMI, PERRLA, dentition normal, normal appearance ENT: hard of hearing, NA/AT, normal oropharynx - Neck Neck: normal ROM - Respiratory Respiratory: bilateral: CTA, negative: diminished, dullness, rales, rhonchi - Cardiovascular Heart sounds: normal: S1, S2 Abnormal Heart Sounds: no systolic murmur, no diastolic murmur, no rub, no S3 Gallop, no S4 Gallop, no click, no other - Gastrointestinal General gastrointestinal: normal bowel sounds, soft, tenderness Localized gastrointestinal: tender: RLQ, no organomegaly - Integumentary Integumentary: normal, normal turgor - Neurologic Neurologic: CNII-XII intact - Musculoskeletal Musculoskeletal: gait normal, strength equal bilaterally - Psychiatric Psychiatric: A&O x's 3, appropriate affect, intact judgment & insight - Labs CBC & Chem 7: 09/17/18 08:47 09/16/18 06:43 Labs: Abnormal Lab Results - Last 24 Hours (Table) 09/16/18 09/16/18 09/17/18 Range/Units 12:39 16:58 01:52 POC Glucose (mg/dL) 156 H 73 L 100 H (75-99) mg/dL Assessment and Plan Plan: 1. Acute abdominal pain, suspected early bowel obstruction against ileus no transition point seen on CT with regional mesenteric fat inflammation in the right mid abdomen small bowel with fecal-type material within this abnormal loops of bowel without any evidence of transition point. Repeat abdominal films and Soma follow-through as above. Diet has been advanced to clear liquids with plan for full liquids as tolerated. consult with Dr. Ca appreciated, continue IV Levaquin and Flagyl. 2. Diabetes mellitus, we'll going to hold off Januvia, Accu-Cheks before meals and at bedtime, and a sliding scale program 3. Mild persistent Asthma currently asymptomatic on maintenance Advair 500/52 puffs daily as well as Singulair 4. Hypertensive cardiac vascular disease on my card is which is currently on hold, we would provide when necessary enalapril for systolic over 160 5. Leukocytosis most likely secondary to GI source, urinalysis is negative IV antibiotics as #1 DVT prophylaxis heparin subcu GI prophylaxis with Protonix Discharge plan: Return home Impression and plan of care have been directed as dictated by the signing physician. Nissa Ledbetter nurse practitioner acting as scribe for signing physician.
[2018-09-17] MEDS: LEVOFLOXACIN 500MG-D5W PMX 500 MG in DEXTROSE/WATER 1 100ML.BAG IVPB SCH (15:27)
[2018-09-17] MEDS: DEXTROSE 5%-0.45% NACL 1,000 ML IV SCH ×2 (15:27→23:53)
[2018-09-17] MEDS ORDERED: MECLIZINE 25 MG TAB PO PRN (16:05)
[2018-09-17] MEDS: LOSARTAN 50 MG TAB PO SCH (16:27)
[2018-09-17 17:20] LABS: Glucose,Whole Blood 88 mg/dL (75-99)
[2018-09-17] MEDS: LORATADINE 10 MG TAB PO SCH (18:23)
[2018-09-17] MEDS: MONTELUKAST 10 MG TAB PO SCH (18:23)
[2018-09-17 19:47] LABS: Glucose,Whole Blood 123 mg/dL (75-99)
[2018-09-18 07:23] LABS: Glucose,Whole Blood 112 mg/dL (75-99)
[2018-09-18] MEDS: INSULIN ASPART 100 UNIT/ML 1 ML 10 ML VIAL SQ SCH ×4 (07:28→21:11)
[2018-09-18] MEDS: metroNIDAZOLE-NS PMX 500 MG in SALINE 1 100ML.BAG IVPB SCH ×2 (09:03→17:20)
[2018-09-18] MEDS: LOSARTAN 50 MG TAB PO SCH (09:03)
[2018-09-18] MEDS: HEPARIN SODIUM,PORCINE 5,000 UNIT/ML 1 ML VIAL SQ SCH ×2 (09:03→17:21)
[2018-09-18] MEDS: PANTOPRAZOLE 40 MG/10 ML VIAL IV SCH (09:03)
[2018-09-18 12:05] LABS: Glucose,Whole Blood 74 mg/dL (75-99)
[2018-09-18] MEDS: LEVOFLOXACIN 500MG-D5W PMX 500 MG in DEXTROSE/WATER 1 100ML.BAG IVPB SCH (13:02)
--- NOTE | 2018-09-18 14:28 | P.PN ---
Subjective Progress Note Date: 09/18/18 This is a pleasant 78-year-old female patient of Dr. Miller. She has underlying history of diabetes mellitus type 2, fibromyalgia, asthma, hypertension Osteoarthritis. She presents emergency room with acute abdominal pain, generalized nature. Pain more towards the right lower quadrant area, started at 11 PM last night. Patient has prior episode of bowel perforation from 40 years ago as a result from complicated hysterectomy, similar episode 20 years ago. She had any bowel resection 40 years ago approximately 1 foot was taken out as result of the complicated hysterectomy. Patient presents with increasing abdominal pain with nausea and abdominal discomfort patient has no emesis however she does have some nausea and abdominal distention. No fever no chills, patient denies any hematuria or melena hematochezia. Patient was seen in the emergency room for which imaging studies were done showing stacked loops of dilated bowel sounds in the right mid abdomen with scattered air-fluid levels, no evidence of focal obstruction or abrupt transition point in the luminal diameter, there is surrounding mesenteric fat inflammation this region as well as fecal-type material within this abnormal loops of bowels or large bowel is unremarkable, what was thought to present the appendix is normal there is bibasilar scarring against atelectasis, no pulmonary nodules, spleen and adrenals kidneys are unremarkable there's also unilateral right-sided L4-L5 lumbar fusion with associated laminectomy, suspicion of early obstruction against ileus. WBC 13.6, creatinine 0.6, liver function test is normal urinalysis is normal lipase is normal. Patient was admitted with consultation to Gen. surgery Dr. Castro patient is made nothing by mouth. She is concerned about the [place] trip coming up this Saturday 09/16: Repeat lab work is unremarkable. Patient is complaining of right upper quadrant pain. She states she's had a few pellets for bowel movement. She denies any vomiting. She states she has been ambulating. We will plan to start clear liquid diet if cleared by Dr. Ca. Repeat abdominal films ordered for tomorrow. 09/17: Patient has been afebrile, pulse ox 94% on room air, heart rate ran in the 90s, blood pressure 120/71. Repeat hemoglobin 13.2, white count is 6.6, blood sugars run between 79 100. Patient was apparently nauseated this morning. Patient did have a small bowel movement. She continues to have abdominal distention but is better from yesterday. Abdominal x-ray shows nonspecific abdomen. Changes to suggest obstruction are not identified. Dr. Ca ordered a small bowel follow-through that showed interval resolution of partial distal small bowel obstruction presumed on the basis of focal adhesion. Diet has been advanced to clear liquid and full liquid as tolerated by Dr. Ca. 09/18: Patient is complaining of severe abdominal bloating. She is passing some gas and has been emptied of the barium from yesterday. She denies any abdominal pain but does feel some discomfort. She is currently on a full liquid diet. Abdominal x-rays ordered and patient made nothing by mouth until seen by Dr. Ca. Temperature 98.1, heart rate running in the 80s, blood pressure 156/97, pulse ox 96% on room air. Repeat lab work will be ordered for tomorrow. Review of Systems Constitutional: Denies chills, Denies anorexia, Denies chronic headaches, Denies chronic pain, Denies daytime sleepiness, Denies fatigue, Denies fever, Denies lethargy, Denies malaise, Denies night sweats, Denies poor appetite, Denies sweats, Denies weakness, Denies weight gain, Denies weight loss Ears, nose, mouth and throat: Reports as per HPI, Denies ant. neck pain, Denies bleeding gums, Denies dental pain, Denies dysphagia, Denies epistaxis, Denies headache, Denies hoarseness, Denies mouth pain, Denies nasal congestion, Denies nasal discharge, Denies neck fullness/pressure, Denies neck lump, Denies nose pain, Denies odynophagia, Denies post-nasal drip, Denies sinus pain, Denies sinus pressure, Denies swelling in mouth, Denies swelling in throat, Denies sore throat, Denies vertigo, Denies voice changes Cardiovascular: Reports as per HPI, Denies chest pain, Denies claudication, Denies decreased exercise tolerance, Denies dyspnea on exertion, Denies edema, Denies high blood pressure, Denies irregular heart beat, Denies leg edema, Denies lightheadedness, Denies orthopnea, Denies palpitations, Denies paroxysmal nocturnal dyspnea, Denies phlebitis, Denies rapid heart beat, Denies shortness of breath, Denies syncope Respiratory: Reports as per HPI, Denies congestion, Denies cough, Denies cough with sputum, Denies dyspnea, Denies excessive sputum, Denies hemoptysis, Denies home oxygen, Denies pain, Denies pain on inspiration, Denies pleurisy, Denies respiratory infections, Denies sleep apnea, Denies snoring, Denies wheezing Gastrointestinal: Reports as per HPI, Reports abdominal discomfort, Reports belching, Reports bloating, Reports change in bowel habits, Reports constipation , Reports indigestion, Reports nausea, Denies BRBPR, Denies coffee ground emesis , Denies diarrhea, Denies dyspepsia, Denies early satiety, Denies excessive gas , Denies heartburn, Denies hematemesis, Denies hematochezia, Denies jaundice, Denies lactose intolerance, Denies loss of appetite, Denies melena, Denies vomiting Genitourinary: Reports as per HPI, Denies difficulty voiding, Denies dysuria, Denies flank pain, Denies genital sores, Denies hematuria, Denies hot flashes, Denies incomplete emptying, Denies kidney stones, Denies mixed incontinence, Denies nocturia, Denies pelvic pain, Denies post void dribbling, Denies , Denies prolapse symptoms, Denies stress incontinence, Denies urge incontinence , Denies urgency, Denies urinary frequency, Denies vaginal discharge, Denies vaginal dryness, Denies vaginal itching, Denies vaginal odor Musculoskeletal: Reports as per HPI, Denies arm numbness/tingling, Denies atrophy, Denies fractures, Denies frequent falls, Denies gait dysfunction, Denies hot joints, Denies leg numbness/tingling, Denies limitation of motion, Denies loss of height, Denies low back pain, Denies morning stiffness, Denies muscle cramps, Denies muscle weakness, Denies myalgias, Denies neck pain, Denies neck stiffness, Denies prior amputations, Denies redness of joints, Denies shooting arm pain, Denies shooting leg pain Integumentary: Reports as per HPI, Denies acne, Denies boils, Denies brittle nails, Denies change in hair/nails, Denies color changes, Denies darkening of skin, Denies depigmentation, Denies dryness, Denies foot/leg ulcers, Denies growths, Denies hirsutism, Denies lesions, Denies onychomycosis, Denies pruritus , Denies rash, Denies sores, Denies striae, Denies unusual bruising, Denies wounds Neurological: Reports as per HPI, Denies aphasia, Denies ataxia, Denies balance difficulties, Denies burning pain, Denies change in mentation, Denies change in smell/taste, Denies change in speech, Denies confusion, Denies convulsions, Denies double vision, Denies gait dysfunction, Denies head injury, Denies headaches, Denies hearing difficulties, Denies lack of coordination, Denies loss of vision, Denies memory loss, Denies migraines, Denies motor disturbance, Denies numbness, Denies paralysis, Denies paresthesias, Denies seizures, Denies sensory deficit, Denies spasticity, Denies syncope, Denies tic, Denies tingling , Denies transient paralysis, Denies tremors, Denies vertigo, Denies weakness, Denies visual changes Psychiatric: Reports as per HPI, Denies anhedonia, Denies anxiety, Denies anxiety attacks, Denies change in appetite, Denies change in libido, Denies change in sleep habits, Denies confusion, Denies depression, Denies difficulty concentrating, Denies disorientation, Denies hallucinations, Denies hopelessness , Denies hypersomnia, Denies insomnia, Denies irritability, Denies memory loss, Denies mood swings, Denies paranoia, Denies sadness/tearfulness, Denies sleep disturbances, Denies suicidal ideation Endocrine: Reports as per HPI, Denies cold intolerance, Denies deepening of the voice, Denies excessive sweating, Denies excessive thirst, Denies fatigue, Denies flushing, Denies heat intolerance, Denies high blood sugars, Hematologic/Lymphatic: Reports as per HPI, Denies easy bleeding, Denies easy bruising, Denies lymphadenopathy, Denies lymphedema, Denies thrombophilia Objective - Vital Signs Vital signs: Vital Signs Temp 98.1 F 09/18/18 07:30 Pulse 87 09/18/18 07:30 Resp 16 09/18/18 07:30 BP 156/97 09/18/18 07:30 Pulse Ox 96 09/18/18 07:30 Intake & Output 09/17/18 09/18/18 09/18/18 18:59 06:59 18:59 Intake Total 350 Balance 350 Intake: Oral 350 Other: Voiding Method Toilet Toilet Toilet # Voids 1 - Exam General appearance: cooperative, no acute distress, patient is ambulating in her room. - EENT Eyes: anicteric sclerae, EOMI, PERRLA, dentition normal, normal appearance ENT: hard of hearing, NA/AT, normal oropharynx - Neck Neck: normal ROM - Respiratory Respiratory: bilateral: CTA, negative: diminished, dullness, rales, rhonchi - Cardiovascular Heart sounds: normal: S1, S2 Abnormal Heart Sounds: no systolic murmur, no diastolic murmur, no rub, no S3 Gallop, no S4 Gallop, no click, no other - Gastrointestinal General gastrointestinal: normal bowel sounds, soft, tenderness Localized gastrointestinal: Distended, generalized tender, no organomegaly - Integumentary Integumentary: normal, normal turgor - Neurologic Neurologic: CNII-XII intact - Musculoskeletal Musculoskeletal: gait normal, strength equal bilaterally - Psychiatric Psychiatric: A&O x's 3, appropriate affect, intact judgment & insight - Labs CBC & Chem 7: 09/17/18 08:47 09/16/18 06:43 Labs: Abnormal Lab Results - Last 24 Hours (Table) 09/17/18 09/18/18 09/18/18 Range/Units 19:45 07:08 11:57 POC Glucose (mg/dL) 123 H 112 H 74 L (75-99) mg/dL Assessment and Plan Plan: 1. Acute abdominal pain, suspected early bowel obstruction against ileus no transition point seen on CT with regional mesenteric fat inflammation in the right mid abdomen small bowel with fecal-type material within this abnormal loops of bowel without any evidence of transition point. Repeat abdominal films and small bowel follow-through as above. Diet has been advanced to clear liquids with plan for full liquids as tolerated. consult with Dr. Ca appreciated, continue IV Levaquin and Flagyl. Repeat abdominal films and patient made nothing by mouth until seen by Dr. Ca 2. Diabetes mellitus, we'll going to hold off Januvia, Accu-Cheks before meals and at bedtime, and a sliding scale program 3. Mild persistent Asthma currently asymptomatic on maintenance Advair 500/52 puffs daily as well as Singulair 4. Hypertensive cardiac vascular disease on my card is which is currently on hold, we would provide when necessary enalapril for systolic over 160 5. Leukocytosis most likely secondary to GI source, urinalysis is negative IV antibiotics as #1 DVT prophylaxis heparin subcu GI prophylaxis with Protonix Discharge plan: Return home Impression and plan of care have been directed as dictated by the signing physician. Nissa Ledbetter nurse practitioner acting as scribe for signing physician.
--- NOTE | 2018-09-18 14:42 | XR ---
EXAMINATION TYPE: XR abdomen 2V DATE OF EXAM: 09/18/2018 2:03 PM CLINICAL HISTORY: Abdominal pain. Follow-up after small bowel follow-through. TECHNIQUE: Upright and supine images of the abdomen were obtained. COMPARISON: Small bowel follow-through dated 09/17/2018. FINDINGS: Oral contrast is seen throughout the entirety of the colon including the appendix and rectu m. No dilated small or large bowel is seen. No pneumoperitoneum is identified. Cholecystectomy clips are present. Surgical clip is seen near the gastroesophageal junction. Postsurgical changes of the silvio mbosacral spine are noted as well as surgical absence of the right inguinal region. No suspicious malachi cifications within the abdomen. IMPRESSION: No evidence of bowel obstruction with oral contrast throughout the nondilated colon from the recent small bowel follow-through examination.
[2018-09-18] MEDS: DEXTROSE 5%-0.45% NACL 1,000 ML IV SCH (15:07)
[2018-09-18 17:20] LABS: Glucose,Whole Blood 95 mg/dL (75-99)
--- NOTE | 2018-09-18 17:41 | P.PN ---
Subjective Progress Note Date: 09/18/18 Principal diagnosis: Small bowel obstruction Patient doing well today. Complaining of some bloating although having good bowel function including barium. No nausea or vomiting. Objective - Vital Signs Vital signs: Vital Signs Temp 98.3 F 09/18/18 15:00 Pulse 97 09/18/18 15:00 Resp 12 09/18/18 15:00 BP 162/82 09/18/18 15:00 Pulse Ox 98 09/18/18 15:00 Intake & Output 09/17/18 09/18/18 09/18/18 18:59 06:59 18:59 Intake Total 350 Balance 350 Intake: Oral 350 Other: Voiding Method Toilet Toilet Toilet # Voids 1 3 - Exam Abdomen: Soft, less distended, mild right lower quadrant tenderness - Labs CBC & Chem 7: 09/17/18 08:47 09/16/18 06:43 Labs: Abnormal Lab Results - Last 24 Hours (Table) 09/17/18 09/18/18 09/18/18 Range/Units 19:45 07:08 11:57 POC Glucose (mg/dL) 123 H 112 H 74 L (75-99) mg/dL Assessment and Plan (1) Small bowel obstruction Narrative/Plan: Begin low fiber diet. Today's x-rays show no evidence of obstruction. Possible discharge tomorrow if tolerating diet. Current Visit: Yes Status: Acute Code(s): K56.609 - UNSP INTESTNL OBST, UNSP TO PARTIAL VERSUS COMPLETE OBST SNOMED Code(s): 530789680
[2018-09-18 20:20] LABS: Glucose,Whole Blood 136 mg/dL (75-99)
[2018-09-19] MEDS: metroNIDAZOLE-NS PMX 500 MG in SALINE 1 100ML.BAG IVPB SCH ×2 (00:22→07:59)
[2018-09-19] MEDS: HEPARIN SODIUM,PORCINE 5,000 UNIT/ML 1 ML VIAL SQ SCH ×3 (00:23→15:27)
[2018-09-19 07:15] LABS: Glucose,Whole Blood 126 mg/dL (75-99)
[2018-09-19 07:54] VITALS: PULSE 97; RESP 16
[2018-09-19] MEDS: DEXTROSE 5%-0.45% NACL 1,000 ML IV SCH (07:54)
[2018-09-19] MEDS: INSULIN ASPART 100 UNIT/ML 1 ML 10 ML VIAL SQ SCH ×2 (07:55→11:59)
[2018-09-19] MEDS: PANTOPRAZOLE 40 MG/10 ML VIAL IV SCH (07:59)
[2018-09-19] MEDS: LOSARTAN 50 MG TAB PO SCH (08:01)
[2018-09-19] MEDS: LORATADINE 10 MG TAB PO SCH (08:01)
[2018-09-19] MEDS: MONTELUKAST 10 MG TAB PO SCH (08:01)
[2018-09-19 09:38] LABS: HGB 13.1 gm/dL (11.4-16.0); MCH 29.4 pg (25.0-35.0); MCHC 31.2 g/dL (31.0-37.0); MCV 94.3 fL (80.0-100.0); Mean Platelet Volume 7.4; Platelet Count 201 k/uL (150-450); RBC 4.46 m/uL (3.80-5.40); RDW 13.9 % (11.5-15.5); WBC 7.1 k/uL (3.8-10.6)
[2018-09-19 09:52] LABS: ALT 56 U/L (9-52); AST 60 U/L (14-36); Albumin 3.9 g/dL (3.5-5.0); Alkaline Phosphatase 51 U/L (38-126); Anion Gap 10 mmol/L; Blood Urea Nitrogen 3 mg/dL (7-17); Calcium 9.3 mg/dL (8.4-10.2); Carbon Dioxide 24 mmol/L (22-30); Chloride 108 mmol/L (98-107); Glucose 161 mg/dL (74-99); Potassium 3.3 mmol/L (3.5-5.1); Sodium 142 mmol/L (137-145); Total Bilirubin 0.5 mg/dL (0.2-1.3); Total Protein 6.3 g/dL (6.3-8.2)
[2018-09-19] MEDS ORDERED: MORPHINE ORAL SOLN 10 MG/5 ML CUP PO PRN (11:09)
[2018-09-19] MEDS ORDERED: LEVOFLOXACIN 500 MG TAB PO SCH (13:00)
[2018-09-19] MEDS ORDERED: POTASSIUM CHLORIDE ER 20 MEQ TAB.ER PO STA (14:06)
--- NOTE | 2018-09-19 14:08 | P.DS ---
Providers Date of admission: 09/14/18 20:52 Expected date of discharge: 09/19/18 Attending physician: Nandini Meyers Consults: 09/14/18 19:37 Consult Physician Stat Consulting Provider: Alireza Ca Reason/Comments: SBO Do you want consulting provider notified?: Yes Primary care physician: [facility] Course: This is a pleasant 78-year-old female patient of Dr. Miller. She has underlying history of diabetes mellitus type 2, fibromyalgia, asthma, hypertension Osteoarthritis. She presents emergency room with acute abdominal pain, generalized nature. Pain more towards the right lower quadrant area, started at 11 PM last night. Patient has prior episode of bowel perforation from 40 years ago as a result from complicated hysterectomy, similar episode 20 years ago. She had any bowel resection 40 years ago approximately 1 foot was taken out as result of the complicated hysterectomy. Patient presents with increasing abdominal pain with nausea and abdominal discomfort patient has no emesis however she does have some nausea and abdominal distention. No fever no chills, patient denies any hematuria or melena hematochezia. Patient was seen in the emergency room for which imaging studies were done showing stacked loops of dilated bowel sounds in the right mid abdomen with scattered air-fluid levels, no evidence of focal obstruction or abrupt transition point in the luminal diameter, there is surrounding mesenteric fat inflammation this region as well as fecal-type material within this abnormal loops of bowels or large bowel is unremarkable, what was thought to present the appendix is normal there is bibasilar scarring against atelectasis, no pulmonary nodules, spleen and adrenals kidneys are unremarkable there's also unilateral right-sided L4-L5 lumbar fusion with associated laminectomy, suspicion of early obstruction against ileus. WBC 13.6, creatinine 0.6, liver function test is normal urinalysis is normal lipase is normal. Patient was admitted with consultation to Gen. surgery Dr. Castro patient is made nothing by mouth. She is concerned about the [place] trip coming up this Saturday 09/16: Repeat lab work is unremarkable. Patient is complaining of right upper quadrant pain. She states she's had a few pellets for bowel movement. She denies any vomiting. She states she has been ambulating. We will plan to start clear liquid diet if cleared by Dr. Ca. Repeat abdominal films ordered for tomorrow. 09/17: Patient has been afebrile, pulse ox 94% on room air, heart rate ran in the 90s, blood pressure 120/71. Repeat hemoglobin 13.2, white count is 6.6, blood sugars run between 79 100. Patient was apparently nauseated this morning. Patient did have a small bowel movement. She continues to have abdominal distention but is better from yesterday. Abdominal x-ray shows nonspecific abdomen. Changes to suggest obstruction are not identified. Dr. Ca ordered a small bowel follow-through that showed interval resolution of partial distal small bowel obstruction presumed on the basis of focal adhesion. Diet has been advanced to clear liquid and full liquid as tolerated by Dr. Ca. 09/18: Patient is complaining of severe abdominal bloating. She is passing some gas and has been emptied of the barium from yesterday. She denies any abdominal pain but does feel some discomfort. She is currently on a full liquid diet. Abdominal x-rays ordered and patient made nothing by mouth until seen by Dr. Ca. Temperature 98.1, heart rate running in the 80s, blood pressure 156/97, pulse ox 96% on room air. Repeat lab work will be ordered for tomorrow. 09/19: Dr. Ca has reviewed yesterday's abdominal x-rays that showed no evidence of obstruction. He recommended beginning a low fiber diet with possible discharge today if tolerating diet. She has been afebrile, blood pressure 157/77, heart rate running in the 90s. The patient states that she has tolerated the diet. Lodine seems to be a little bit better. She states she is uncomfortable but no pain. She is passing gas. She is passing barium as well. White count is normal at 7.1, hemoglobin 13.1, potassium 3.3 which will be replaced, chloride 108, CO2 24, BUN 3 and creatinine 0.65. Capillary blood glucose running between 126 and 161. Total bilirubin 0.5, AST 60, ALT 56. Discharge plan: 1. Acute abdominal pain, suspected early bowel obstruction against ileus no transition point, possible infectious colitis 2. Diabetes mellitus 2 3. Mild persistent Asthma currently asymptomatic 4. Hypertensive cardiacvascular disease 5. Leukocytosis most likely secondary possible colitis Discharge plan: Return home Impression and plan of care have been directed as dictated by the signing physician. Nissa Ledbetter nurse practitioner acting as scribe for signing physician. Patient Condition at Discharge: Good Plan - Discharge Summary Discharge Rx Participant: Yes New Discharge Prescriptions: New L.acidoph,Paracasei, B.lactis [Probiotic] 1 each PO DAILY #30 capsule Levofloxacin [Levaquin] 500 mg PO DAILY #5 tab Mag Hydrox/Al Hydrox/Simeth [Maalox] 30 ml PO QID #250 ml metroNIDAZOLE [Flagyl] 500 mg PO Q8HR #15 tab Pantoprazole [Protonix] 40 mg PO DAILY #30 tablet. Continue Telmisartan [Micardis] 40 mg PO DAILY Cholecalciferol [Vitamin D3] 5,000 unit PO DAILY@1200 Loratadine [Claritin] 10 mg PO DAILY Omeprazole [PriLOSEC] 20 mg PO DAILY Montelukast [Singulair] 10 mg PO DAILY Ascorbic Acid [Vitamin C] 500 mg PO DAILY Aspirin [Adult Low Dose Aspirin EC] 81 mg PO Q48H HYDROcodone/APAP 5-325MG [Milan 5-325] 1 tab PO DAILY PRN PRN Reason: Pain Calcium Carbonate [Calcium] 600 mg PO BID Vitamin B Complex 1 cap PO DAILY Vitamin E 100 unit PO DAILY sitaGLIPtin [Januvia] 100 mg PO DAILY Meclizine [Antivert] 25 mg PO TID PRN PRN Reason: Vertigo Fluticasone/Salmeterol [Advair 500-50 Diskus] 2 puff INHALATION RT-DAILY Discharge Medication List Cholecalciferol [Vitamin D3] 5,000 unit PO DAILY@1200 01/16/14 [History] Loratadine [Claritin] 10 mg PO DAILY 01/16/14 [History] Montelukast [Singulair] 10 mg PO DAILY 01/16/14 [History] Omeprazole [PriLOSEC] 20 mg PO DAILY 01/16/14 [History] Telmisartan [Micardis] 40 mg PO DAILY 01/16/14 [History] Ascorbic Acid [Vitamin C] 500 mg PO DAILY 10/31/16 [History] Aspirin [Adult Low Dose Aspirin EC] 81 mg PO Q48H 10/31/16 [History] Calcium Carbonate [Calcium] 600 mg PO BID 10/31/16 [History] HYDROcodone/APAP 5-325MG [Milan 5-325] 1 tab PO DAILY PRN 10/31/16 [History] Vitamin B Complex 1 cap PO DAILY 10/31/16 [History] Vitamin E 100 unit PO DAILY 07/09/17 [History] Fluticasone/Salmeterol [Advair 500-50 Diskus] 2 puff INHALATION RT-DAILY [History] Meclizine [Antivert] 25 mg PO TID PRN 09/14/18 [History] sitaGLIPtin [Januvia] 100 mg PO DAILY 09/14/18 [History] L.acidoph,Paracasei, B.lactis [Probiotic] 1 each PO DAILY #30 capsule 09/17/18 [ Rx] Levofloxacin [Levaquin] 500 mg PO DAILY #5 tab 09/19/18 [Rx] Mag Hydrox/Al Hydrox/Simeth [Maalox] 30 ml PO QID #250 ml 09/19/18 [Rx] Pantoprazole [Protonix] 40 mg PO DAILY #30 tablet. 09/19/18 [Rx] metroNIDAZOLE [Flagyl] 500 mg PO Q8HR #15 tab 09/19/18 [Rx] Follow up Appointment(s)/Referral(s): Alireza Ca MD [Medical Doctor] - 2 Weeks Armani Miller MD [Primary Care Provider] - 1 Week Discharge Disposition: HOME SELF-CARE
[2018-09-19 14:26] VITALS: BMI 29.9
--- NOTE | 2018-09-19 15:25 | P.PN ---
Subjective Progress Note Date: 09/19/18 Principal diagnosis: Small bowel obstruction Patient doing well today. Her pain is improved. She had additional loose stools. No nausea or vomiting. Tolerating diet. Objective - Vital Signs Vital signs: Vital Signs Temp 98.1 F 09/19/18 07:47 Pulse 97 09/19/18 07:47 Resp 16 09/19/18 07:47 BP 157/77 09/19/18 07:47 Pulse Ox 96 09/19/18 07:47 Intake & Output 09/18/18 09/19/18 09/19/18 18:59 06:59 18:59 Intake Total 2125 Balance 2125 Weight 69.4 kg Intake: Intake, IV Titration 1400 Amount Dextrose 5%-0.45% NaCl 1, 1200 000 ml @ 75 mls/hr IV . [id number] ANGEL Rx#:[id number] metroNIDAZOLE-NS PMX 500 200 mg In Saline 1 100ml.bag @ 100 mls/hr IVPB Q8HR ANGEL Rx#:[id number] Oral 725 Other: Voiding Method Toilet # Voids 3 3 1 - Exam Abdomen: Soft, nondistended, minimal right-sided tenderness - Labs CBC & Chem 7: 09/19/18 09:20 09/19/18 09:20 Labs: Abnormal Lab Results - Last 24 Hours (Table) 09/18/18 09/19/18 09/19/18 Range/Units 20:07 07:03 09:20 Potassium 3.3 L (3.5-5.1) mmol/L Chloride 108 H (98-107) mmol/L BUN 3 L (7-17) mg/dL Glucose 161 H (74-99) mg/dL POC Glucose (mg/dL) 136 H 126 H (75-99) mg/dL AST 60 H (14-36) U/L ALT 56 H (9-52) U/L Assessment and Plan (1) Small bowel obstruction Narrative/Plan: Increase activity levels. May discharge. Follow-up in the office. Current Visit: Yes Status: Acute Code(s): K56.609 - UNSP INTESTNL OBST, UNSP TO PARTIAL VERSUS COMPLETE OBST SNOMED Code(s): 780385259
[2018-09-19 15:30] VITALS: BP 159/80; TEMP 97.8
== END 2018-09-19 16:30 | disposition home or self-care (01) | DRG 390 ==
LOC: EC 17:19 → 4SSUR 20:52
PROVIDERS: ADMIT Family Medicine; ATTEND Family Medicine
DX: K56.51 Intestinal adhesions [bands], with partial obstruction (principal); E11.9 Type 2 diabetes mellitus without complications; J45.30 Mild persistent asthma, uncomplicated; M79.7 Fibromyalgia; I10 Essential (primary) hypertension; M19.90 Unspecified osteoarthritis, unspecified site; K21.9 Gastro-esophageal reflux disease without esophagitis; Z90.710 Acquired absence of both cervix and uterus; Z90.49 Acquired absence of other specified parts of digestive tract; Z79.82 Long term (current) use of aspirin; Z79.84 Long term (current) use of oral hypoglycemic drugs; Z79.899 Other long term (current) drug therapy; Z98.1 Arthrodesis status
CPT/HCPCS: 36415; 74019; 74021; 74176; 74250; 80053; 81001; 82150; 83036; 83605; 83690; 85025; 85027; 96361; 96374; 96375; 96376; 99285

== ENCOUNTER → 2018-12-23 | Outpatient (CLI) | payer MEDICARE, BC ==
[~2018-12-23] MED LIST: SODIUM CHLORIDE 0.9% 500 ML 500 ML in EMPTY BAG 1 BAG IV PRN; ZOLEDRONIC ACID 5 MG in SODIUM CHLORIDE 0.9% 100 ML IV ONE
[2018-12-23 15:34] VITALS: BP 124/71; PULSE 89; RESP 16; TEMP 98.7
== END | disposition home or self-care (01) ==
LOC: PROCWHC3 14:38
PROVIDERS: ATTEND Internal Medicine Rheumatology
DX: M81.0 Age-related osteoporosis without current pathological fracture (principal); M85.89 Other specified disorders of bone density and structure, multiple sites; Z88.6 Allergy status to analgesic agent; Z88.2 Allergy status to sulfonamides; Z91.041 Radiographic dye allergy status
CPT/HCPCS: 96365; J3489

== ENCOUNTER → 2020-02-26 | Outpatient (CLI) | payer MEDICARE, BC ==
[2020-02-26 11:06] LABS: Appearance,Urine Clear (Clear); Bilirubin,Urine Negative (Negative); Blood,Urine Negative (Negative); Color,Urine Light Yellow; Glucose,Urine (UA) Negative (Negative); Ketones,Urine Negative (Negative); Leukocyte Esterase,Urine Negative (Negative); Nitrite,Urine Negative (Negative); PH, Urine 5.5 (5.0-8.0); Protein,Urine Negative (Negative); Specific Gravity,Urine 1.014 (1.001-1.035); Urobilinogen,Urine <2.0 mg/dL (<2.0)
== END | disposition home or self-care (01) ==
LOC: LABWHC1 08:58
PROVIDERS: ATTEND Internal Medicine Critical Care Medicine
DX: N39.0 Urinary tract infection, site not specified (principal)
CPT/HCPCS: 81003; 87086

== ENCOUNTER → 2020-07-27 | Outpatient (CLI) | payer MEDICARE, BC | END | disposition home or self-care (01) | LOC: LABWHC1 13:55 | PROVIDERS: ATTEND Neurological Surgery | DX: Z01.818 Encounter for other preprocedural examination (principal) ==

== ENCOUNTER → 2020-08-29 | Outpatient (CLI) | payer MEDICARE, BC ==
--- NOTE | 2020-08-29 12:21 | US ---
EXAMINATION TYPE: US thyroid st tissue head/neck DATE OF EXAM: 08/29/2020 COMPARISON: NONE CLINICAL HISTORY: E07.9 thyroid disorder. Patient states having an MRI done at outside facility that showed abnormal thyroid. Patient just had cervical spine surgery early August 2020. GLAND SIZE: Right Lobe: 4.2 x 2.3 x 2.8 cm Overall Parenchyma: heterogenous Left Lobe: 3.4 x 1.5 x 1.8 cm Overall Parenchyma: heterogeneous Isthmus Thickness: 0.5 cm NODULES RIGHT: # of nodules measured on right: 1 1. 1.1 X 0.9 x 0.8 cm mixed cystic and solid, isoechoic nodule, which is wider than tall, with smoo th margins, without echogenic foci. Prior size: No prior LEFT: # of nodules measured on left: 0 ISTHMUS: # of nodules measured in the isthmus: 0 Bilateral neck scanned, no evidence of lymphadenopathy. Markedly heterogeneous normal-sized thyroid with single 1.1 cm right-sided nodule on images saved. IMPRESSION: As above. 2017 ACR TI-RADS LEVEL: TR-RADS 2 - Not Suspicious: No FNA *Highest TI-RADS level nodule reported
== END | disposition home or self-care (01) ==
LOC: RADUSWWP 11:03
PROVIDERS: ATTEND Nurse Practitioner Family
DX: E07.9 Disorder of thyroid, unspecified (principal)
CPT/HCPCS: 76536

== ENCOUNTER → 2021-01-17 | Outpatient (CLI) | payer MEDICARE, BC ==
[2021-01-18 00:24] LABS: Alternaria alternata IgE <0.10 kU/L
[2021-01-18 00:25] LABS: Aspergillus fumagatus IgE <0.10 kU/L; Birch IgE <0.10 kU/L; Cat Epith & Dander IgE <0.10 kU/L; Cladosporian herbarum IgE <0.10 kU/L
[2021-01-18 00:26] LABS: Dermato. farinae IgE <0.10 kU/L; Maple (Box Elder) IgE <0.10 kU/L; Oak IgE <0.10 kU/L
[2021-01-18 00:27] LABS: Elm IgE <0.10 kU/L
[2021-01-18 13:31] LABS: Bermuda Grass IgE <0.10 kU/L (<0.10); Meadow Fescue IgE <0.10 kU/L (<0.10); Meadow Fescue IgE Class CLASS 0; Meadow Grs (KY blue) IgE <0.10 kU/L (<0.10); Meadow Grs (KY blue) IgE Class CLASS 0; Timothy Grass IgE <0.10 kU/L (<0.10); Timothy Grass IgE Class CLASS 0
[2021-01-18 13:32] LABS: Beech IgE <0.10 kU/L (<0.10); Cottonwood IgE <0.10 kU/L (<0.10); House Dust (H-S) IgE <0.10 kU/L (<0.10); House Dust (H-S) IgE Class CLASS 0; Penicillium notatum IgE Class CLASS 0; Sycamore(Mpl.Lf) IgE <0.10 kU/L (<0.10); Sycamore(Mpl.Lf) IgE Class CLASS 0; Willow Tree IgE <0.10 kU/L (<0.10)
[2021-01-18 13:33] LABS: English Plantain IgE Class CLASS 0; Goldenrod IgE <0.10 kU/L (<0.10); Goldenrod IgE Class CLASS 0; Lamb's Quarter IgE <0.10 kU/L (<0.10); Lamb's Quarter IgE Class CLASS 0; Ragweed, Giant IgE <0.10 kU/L (<0.10); Ragweed, Giant IgE Class CLASS 0; Sheep Sorrel IgE <0.10 kU/L (<0.10); Sheep Sorrel IgE Class CLASS 0
== END | disposition home or self-care (01) ==
LOC: LABWHC1 11:48
PROVIDERS: ATTEND Internal Medicine
DX: J30.9 Allergic rhinitis, unspecified (principal)
CPT/HCPCS: 36415; 86003

== ENCOUNTER 2021-12-22 08:09 | Day surgery (SDC) | payer MEDICARE, BC ==
[2021-12-20 15:47] VITALS: BMI 29.2
[~2021-12-22 08:09] MED LIST changes: +LACTATED RINGERS 1,000 ML IV SCH; +LIDOCAINE 1% (10MG/ML) FOR IV START INTRADERMA PRN; -SODIUM CHLORIDE 0.9% 500 ML 500 ML in EMPTY BAG 1 BAG IV PRN; -ZOLEDRONIC ACID 5 MG in SODIUM CHLORIDE 0.9% 100 ML IV ONE
[2021-12-22 08:39] LABS: Glucose,Whole Blood 89 mg/dL (75-99)
[2021-12-22 08:40] VITALS: TEMP 98.1
[2021-12-22] MEDS ORDERED: DEXAMETHASONE SOD PHOSPHATE 10 MG/ML 1 ML VIAL ONE (09:56)
[2021-12-22] MEDS ORDERED: ROPIVACAINE 5MG/ML 20ML VIAL ONE (09:56)
[2021-12-22] MEDS ORDERED: MIDAZOLAM 2 MG/2 ML VIAL ONE (09:57)
[2021-12-22] MEDS ORDERED: fentaNYL (PF) 50 MCG/ML 2 ML AMP ONE (09:57)
[2021-12-22] MEDS ORDERED: IV FLUID CONTINUATION 1,000 ML IV ONE (10:32)
--- NOTE | 2021-12-22 10:32 | P.PCN ---
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 2-cervical degenerative disc disease POSTOPERATIVE DIAGNOSIS: Same as preoperative diagnosis. PROCEDURES: Diagnostic bilateral C5 , C6, C7 medial branch blocks, with fluo roscopic guidance (fluoroscopy images available in radiology department ) ( to target the facet joint at bilateral C5- 6, C6-7 ) ANESTHESIA: Monitored anesthesia care as per anesthesia department. EBL: Minimal PROCEDURE INDICATION: The patient with neck pain secondary to cervical arthropathy unresponsive to more conservative treatments. PROCEDURE DESCRIPTION / TECHNIQUE: The patient was seen and identified in the preoperative area. Risks, benefits, complications, and alternatives were discussed with the patient, the patient agreed to proceed with the procedure and signed the consent. IV was started. Vital signs remained stable throughout the procedure. Patient was taken to the OR and time out was completed. The patient was placed in the lateral position ( right Side Up ) on the procedure table.. The cervical area was prepped and draped in the usual sterile fashion. Critical pause was taken. Vital signs were closely monitored during the procedure. Conscious sedation was used during the procedure to decrease patients anxiety. Using cross-table lateral fluoroscopy, the centroid of the trapezoid of right C5 , C6, C7 was identified, marked, and localized with 1% lidocaine 1 ml at each level for skin and Sub Q infiltrations . Subsequently, a 25 G 3 spinal needle was advanced guided by fluoroscopy to the centroid of the trapezoid of Right C5, C6 , C7 . Appleton tip position was confirmed at the centroid of the trapezoids of Right C5 ,C6 , C7 with anteroposterior fluoroscopy. Subsequ ently, 1.5 ml of preservative-free Ropivacaine 0.5% mixed with Dexamethason 5 mg and half ml of the mixture was injected after negative aspiration for blood and CSF. Appleton was then removed intact , and patient positioned for the lateral position left side up and the same procedure was repeated at the left C5, C6, [id number]. COMPLICATIONS: No acute complications. DISPOSITION / PLANS: The patient was placed in a supine position and transferred to the recovery area in a stable condition for observation and was discharged from the recovery room after meeting discharge criteria. Home discharge instructions given to the patient by the staff. The patient was reexamined prior to discharge. The patient will schedule a follow up in the clinic in 2-4 weeks.
[2021-12-22 10:41] VITALS: RESP 18
[2021-12-22 10:50] VITALS: BP 135/85; PULSE 95
--- NOTE | 2021-12-22 12:52 | FL ---
Fluoroscopy INDICATION: Pain FINDINGS: Fluoroscopy time: 1 minute 39 seconds. Images obtained: 2. IMPRESSIONS: 1. Documentation of fluoroscopy.
== END 2021-12-22 11:05 | disposition home or self-care (01) ==
LOC: ORPAIN 08:09
PROVIDERS: ATTEND Specialist
DX: M47.812 Spondylosis without myelopathy or radiculopathy, cervical region (principal); M50.30 Other cervical disc degeneration, unspecified cervical region
CPT/HCPCS: 64490; 64491; J2250; J1100; J3010; J2795

== ENCOUNTER → 2022-08-27 | Outpatient (CLI) | payer MEDICARE, BC ==
--- NOTE | 2022-08-27 12:16 | FL ---
EXAMINATION TYPE: FL barium swallow w video DATE OF EXAM: 08/27/2022 CLINICAL HISTORY: 82-year-old female R13.10, unspecified dysphagia. Sensation of solids getting stuck . TECHNIQUE: Deglutition study is performed utilizing thin liquid barium, barium thick applesauce, and barium coated cracker. COMPARISON: None. Total fluoroscopy time: 1 minute. Total images: None. Real-time fluoroscopy support was provided to speech pathology. FINDINGS: The oral and pharyngeal phases show satisfactory initiation and propagation with all modalities teste d. Normal mastication is seen with solid modalities tested. There is no evidence of penetration or aspiration with any modality tested. No significant pharyngeal residue was appreciated. IMPRESSION: Functional swallow. No aspiration. Please refer to speech therapist notes for further details if nec essary.
== END | disposition home or self-care (01) ==
LOC: RADFLMAIN 11:22
PROVIDERS: ATTEND Internal Medicine Critical Care Medicine
DX: R13.10 Dysphagia, unspecified (principal)
CPT/HCPCS: 74230

== ENCOUNTER → 2023-02-04 | Outpatient (CLI) | payer MEDICARE, BC ==
--- NOTE | 2023-02-04 14:41 | BD ---
EXAMINATION TYPE: Axial Bone Density DATE OF EXAM: 02/04/2023 CLINICAL HISTORY: 82 years old Female. ICD-10 CODE: M81.0 AGE RELATED OSTEOPOROSIS Height: 59 Weight: 153.7 FRAX RISK QUESTIONS: Alcohol (3 or more units per day): no Family History (Parent hip fracture): no Glucocorticoids (More than 3mos): no History of Fracture in Adulthood: Ankle Secondary Osteoporosis: 1. Type 1 Diabetes: no 2. Hyperthyroidism: no 3. Menopause before 45: no 4. Malnutrition: no 5. Chronic liver disease: no Rheumatoid Arthritis: no Current Tobacco Use: no RISK FACTORS HISTORY OF: Hip Fracture (Right/Left): no Spine Fracture: no History of Wrist Fracture: no Surgery to Spine/Hip(right/left)/Wrist (right/left): Lumbar 3-4 surgery 10 years ago Family History of Osteoporosis: no Active: yes Diet low in dairy products/other sources of calcium: yes Postmenopausal woman: yes Take estrogen and/or progesterone medications: no Lost more than 2 inches in height since high school: no Frequent falls: yes Poor Health: no Hyperparathyroidism: no Adrenal Insufficiency: no MEDICATIONS: Prednisone or other steroids: epidural injections Thyroid Medications:no Osteoporosis Medications:None in the past year Additional Medications: BP Meds, Diabetic Meds, Reflux meds, Vit D, Vit C, Calcium, Additional History: Previous Breast Cancer EXAM MEASUREMENTS: Bone mineral density about the R hip (g/cm2): 0.752 Bone mineral density about the L hip (g/cm2): 0.789 T Score values are as follows: -----R Neck: -2.5 -----L Neck: -2.4 -----R Total: -2.0 -----L Total: -1.7 Z Score values are as follows: -----R Neck: -0.3 -----L Neck: -0.1 -----R Total: 0.1 -----L Total: 0.4 Bone mineral density has: decreased -7.3 since the study of 02/17/2016 FRAX%s: The graph provided illustrates a26.3% chance for a major osteoporotic fx and a 8.6chance for the hips probability for fx in 10 years time. IMPRESSION: Osteopenia (T Score between -2.5 and -1). There is slightly increased risk of fracture and the patient may be considered for treatment. Re-Screen 2-5 years. NOTE: T-SCORE=SD OF THE YOUNG ADULT MEAN.
--- NOTE | 2023-02-05 08:09 | MM ---
Reason for Exam: Screening (asymptomatic). Last mammogram was performed 7 year(s) and 7 month(s) ago. Patient History: Menarche at age 9. First Full-Term at age 16. Hysterectomy at age 38. Postmenopausal. Estrogen for 20 years from age 48 until age 68. 1977, Bilateral Mastectomy. 1995, Bilateral Implant Removal. 1995, Bilateral TRAM Reconstruction. 1977, Bilateral Implants. Sister had breast cancer, age 30. Daughter had breast cancer, age 44. Risk Values: Katiana 5 year model risk: 7.2%. NCI Lifetime model risk: 8.1%. Prior Study Comparison: 12/16/2008 Bilateral Screening Mammogram, [facility]. 07/01/2014 Bilateral Diagnostic Mammogram, [facility]. 07/05/2015 Bilateral Diagnostic Mammogram, [facility]. Tissue Density: The breast tissue is heterogeneously dense. This may lower the sensitivity of mammography. Findings: Analyzed By CAD. There is no suspicious group of microcalcifications or new suspicious mass in either breast. Overall Assessment: Benign, BI-RAD 2 Management: Screening Mammogram of both breasts in 1 year. . Patient should continue monthly self-breast exams. A clinical breast exam by your physician is recommended on an annual basis. This exam should not preclude additional follow-up of suspicious palpable abnormalities. Note on Katiana scores and lifetime risk: 1. A Katiana score greater than 3% is considered moderate risk. If this is the case, consider specialist referral to assess eligibility for a risk reducing agent. 2. If overall lifetime risk for the development of breast cancer is 20% or higher, the patient may qualify for future screening with alternating mammogram and breast MRI. Electronically signed and approved by: Son El M.D. Radiologis
== END | disposition home or self-care (01) ==
LOC: RADBDWWP 13:43
PROVIDERS: ATTEND Internal Medicine Geriatric Medicine
DX: Z12.31 Encounter for screening mammogram for malignant neoplasm of breast (principal); M85.88 Other specified disorders of bone density and structure, other site; M81.0 Age-related osteoporosis without current pathological fracture; Z80.3 Family history of malignant neoplasm of breast; Z78.0 Asymptomatic menopausal state; Z90.13 Acquired absence of bilateral breasts and nipples
CPT/HCPCS: 77063; 77067; 77080

== ENCOUNTER → 2023-07-03 | Outpatient (CLI) | payer MEDICARE, BC ==
--- NOTE | 2023-07-03 15:56 | XR ---
EXAMINATION TYPE: XR chest 2V DATE OF EXAM: 07/03/2023 3:51 PM COMPARISON: Chest radiographs from 07/09/2017 TECHNIQUE: XR chest 2V Frontal and lateral views of the chest. CLINICAL INDICATION:Female, 83 years old with history of R07.89 anterior chest wall pain; FINDINGS: Lungs/Pleura: There is no evidence of pleural effusion, focal consolidation, or pneumothorax. Chroni c senescent parenchymal change. Pulmonary vascularity: Unremarkable. Heart/mediastinum: Cardiomediastinal silhouette is enlarged and stable. Atherosclerotic calcificatio ns are seen in the aorta. Musculoskeletal: Multiple level degenerative disc disease changes seen throughout the spine. Partial visualization of lumbar fusion hardware. Other findings: Right axillary surgical clips. Cholecystectomy clips in the right upper quadrant. IMPRESSION: Chronic changes without evidence for acute process.
== END | disposition home or self-care (01) ==
LOC: RADXRMAIN 15:15
PROVIDERS: ATTEND Physician Assistant
DX: R07.89 Other chest pain (principal); Z90.49 Acquired absence of other specified parts of digestive tract
CPT/HCPCS: 71046

== ENCOUNTER → 2023-07-18 | Outpatient (CLI) | payer MEDICARE, BC ==
--- NOTE | 2023-07-19 09:37 | US ---
EXAMINATION TYPE: US thyroid st tissue head/neck DATE OF EXAM: 07/18/2023 COMPARISON: NONE CLINICAL INDICATION: Female, 83 years old with history of R13.10 dysphagia; GLAND SIZE: Right Lobe: 4.2 x 1.9 x 2.1 cm Overall Parenchyma: homogenous Left Lobe: 3.4 x 1.8 x 1.7 cm Overall Parenchyma: homogenous Isthmus Thickness: 0.4m NODULES RIGHT: # of nodules measured on right: 1 1. 1.4 x 0.8 x1.3 cm, upper lateral, solid or almost completely solid, isoechoic nodule, which is wi thien than tall, with ill-defined margins, with echogenic foci. TR 3 Prior size: No prior LEFT: # of nodules measured on left: 0 ISTHMUS: # of nodules measured in the isthmus: 0 Bilateral neck scanned, no evidence of lymphadenopathy. IMPRESSION: 1. Mildly suspicious nodule right lobe thyroid. Consider follow-up exam in one year. 2017 ACR TI-RADS LEVEL: TR-RADS 3 - Mildly Suspicious: Follow if > 1.5 cm, FNA if > 2.5 cm *Highest TI-RADS level nodule reported
== END | disposition home or self-care (01) ==
LOC: RADUSWWP 12:25
PROVIDERS: ATTEND Internal Medicine Geriatric Medicine
DX: E04.1 Nontoxic single thyroid nodule (principal); R13.10 Dysphagia, unspecified
CPT/HCPCS: 76536

== ENCOUNTER → 2024-04-14 | Outpatient (CLI) | payer MEDICARE, BC ==
--- NOTE | 2024-05-06 22:03 | MM ---
Reason for Exam: Screening (asymptomatic). Last mammogram was performed 1 year(s) and 2 month(s) ago. Patient History: Menarche at age 9. First Full-Term at age 16. Hysterectomy at age 38. Postmenopausal. Estrogen for 20 years from age 48 until age 68. 1977, Bilateral Mastectomy. 1995, Bilateral Implant Removal. 1995, Bilateral TRAM Reconstruction. 1977, Bilateral Implants. Sister had breast cancer, age 30. Daughter had breast cancer, age 44. Risk Values: Katiana 5 year model risk: 6.7%. NCI Lifetime model risk: 6.7%. Prior Study Comparison: 07/01/2014 Bilateral Diagnostic Mammogram, [facility]. 07/05/2015 Bilateral Diagnostic Mammogram, [facility]. 02/04/2023 Bilateral MG 3D screening mammo w/cad, [facility]. Tissue Density: There are scattered areas of fibroglandular density. Findings: Analyzed By CAD. Bilateral TRAM flap reconstruction. Unchanged bilateral areas of well cyst and vascular calcifications. There is no suspicious group of microcalcifications or new suspicious mass in either breast. Overall Assessment: Benign, BI-RAD 2 Management: Screening Mammogram of both breasts in 1 year. . Patient should continue monthly self-breast exams. A clinical breast exam by your physician is recommended on an annual basis. This exam should not preclude additional follow-up of suspicious palpable abnormalities. Note on Katiana scores and lifetime risk: 1. A Katiana score greater than 3% is considered moderate risk. If this is the case, consider specialist referral to assess eligibility for a risk reducing agent. 2. If overall lifetime risk for the development of breast cancer is 20% or higher, the patient may qualify for future screening with alternating mammogram and breast MRI. Electronically signed and approved by: Aleksandra Ozuna M.D. Radiologist
== END | disposition home or self-care (01) ==
LOC: RADMAMWWP 12:00
PROVIDERS: ATTEND Internal Medicine Geriatric Medicine
DX: Z12.31 Encounter for screening mammogram for malignant neoplasm of breast
CPT/HCPCS: 77063; 77067

== ENCOUNTER → 2024-05-28 | Outpatient (CLI) | payer MEDICARE, BC ==
[2024-05-28 14:13] VITALS: BP 142/78; PULSE 77; RESP 19
--- NOTE | 2024-05-28 14:46 | P.PAINPG ---
PQRS Measure Charge Sheet Comment: HISTORY OF PRESENT ILLNESS: An 84 year old female presents today with neck pain > 25 yrs due to radiculopathy, spinal stenosis, severe neuroforaminal stenoses and facet arthropathy for evaluation. Neck pain is provoked at 9 / 10 in intensity, predominantly axial, dull / achy in character w occasional radiation towards the shoulders BL. Pain is provoked by rotation and flexion. Pain is relieved with PT x 6 wks which ended in Oct 2023, physician guided stretches daily (cervical) since Oct 2023, medications, topicals, heat, physical therapy, stretching, use of a soft c-collar, massage, repositioning and rest. Interventional procedures include Medications include REVIEW OF ORGAN SYSTEMS: CONSTITUTIONAL: No fevers or chills. No recent weight loss. HEENT: No visual acuity loss, eye pain, difficulties with hearing. No nosebleeds. No difficulty swallowing. RESPIRATORY: Denies any troubles with breathing or dyspnea on exertion. CARDIOVASCULAR: Denies any chest pain, palpitations, or recent heart attacks. GASTROINTESTINAL: Denies fatty food intolerance. Has change in bowel habits and gas bloat. GENITOURINARY: Denies any blood in urine. Has increased urinary frequency. NEUROLOGICAL: + numbness and tingling along the distal extremities. No seizure disorders or headaches. MUSCULOSKELETAL: + back pain SKIN: No skin cancer. No rash. PSYCHIATRIC: Denies current depression or suicidal thoughts. ENDOCRINE: Denies current thyroid disorders. Denies any blood sugar glucose intolerance. HEME/LYMPHATIC: Denies any lumps and bumps around the neck. History of deep venous thrombosis. ALLERGY/IMMUNOLOGY: No immunoglobulin therapy. No immune deficiencies. BREAST: Denies current breast lumps, pain or nipple discharge. Physical Examinations : Constitutional : Cooperative , not in acute distress . HEENT: Neck supple. No Lymphadenopathy. Normal thyroid size . Eyes no ptosis , no icterus, no photophobia . Hearing intact. Normal oropharynx. No Thrush. Respiratory : Chest clear to auscultations bilaterally. No wheezing. No rhonchi. Cardiovascular : Regular rate and rhythm , S1 / S2. No S3 . No S4. Gastrointestinal : Abdomen soft. No tenderness. Bowel sounds x 4. No organomegaly . Genitourinary : Deferred. Neurologic : Cranial nerve II to XII intact. No focal neurological deficits. Psychiatric : alert & oriented x 3. Matching mood & appropriate affect. Judgment & insight intact. Lymphatic No Lymphadenopathy. Musculoskeletal : Cervical Spine: 3 inch well-healed vertical incisional scar in the midline Motor strength in the deltoid and biceps: Normal right side. Normal Left side Motor strength biceps and the wrist extensors: Normal right side . Normal left side Motor strength in the triceps muscle: Normal right side. Normal left side Deep tendon reflexes: Normal at the biceps. Normal at Brachioradialis. Normal at triceps Cervical facet loading test: positive bilaterally over C5-C6 and C6-C7 without jump reflex Vertebral body TTP over C6 Spurling test: positive bilaterally C6-C7 Neck distraction test: positive bilaterally Sukh sign: positive bilaterally Lumbar spine Motor strength lower extremities ,thigh and legs 5/5 Right side , 5/5 Left side Deep tendon reflexes : Normal Knee Jerk. Normal Ankle Jerk Lumbar facet Loading Test: positive Right / positive Left Range of motion of the lumbar spine Flexion 30 degrees, extension 10 degrees Straight Leg Raise test: Left/ Right positive at degree Susy test: positive right / positive left. Severe tenderness over the Sacroiliac joint on the Right / Left sides Gaenslen test: positive bilaterally Seated flexion test: positive bilaterally. Imaging: Awaiting MRI of the Cervical Spine from 10/18/23 from [facility] Assessment/ Plan : Recommendation of BL TFESI C6-C7 #1. Risks, benefits of procedure discussed and patient verbalized understanding. Protocol for discontinuation/ continuation of medications vanessa procedure discussed. Pt should follow up w Dr Smiley for possible cervicogenic RUTH vs occipital neuralgia. Contact information provided. All questions answered I have spent greater than 50 minutes on patient care today. Dr Morgan was available by phone for the evaluation of this patient. The time was used to review the medical records including relevant urine studies and Prescription history (MAPs), review of the available imaging, evaluation and examination of the patient, coordination of care with the medical staff and if applicable referring physicians, as well as creation of the medical record PQRS Narrative: Smoking Status Never smoker Home Medications: Ambulatory Orders Cholecalciferol [Vitamin D3 (25 Mcg = 1000 Iu)] 5,000 unit PO DAILY 01/16/14 Montelukast [Singulair] 10 mg PO DAILY 01/16/14 Telmisartan [Micardis] 40 mg PO DAILY 01/16/14 Ascorbic Acid [Vitamin C] 500 mg PO DAILY 10/31/16 Aspirin [Adult Low Dose Aspirin EC] 81 mg PO Q48H 10/31/16 HYDROcodone/APAP 5-325MG [Star 5-325] 1 tab PO Q4H PRN 10/31/16 Fluticasone Propion/Salmeterol [Advair 500-50 Diskus] 2 puff INHALATION DAILY 09/14/18 Colchicine [Colcrys] 0.6 mg PO DAILY 09/08/21 Pioglitazone [Actos] 30 mg PO DAILY 09/08/21 Controlled Substance Measures - Controlled Substance Measures Is patient prescribed a controlled substance at discharge?: No
== END ==
LOC: PNWHC3 13:45
PROVIDERS: ATTEND Specialist
DX: M47.812 Spondylosis without myelopathy or radiculopathy, cervical region
CPT/HCPCS: 99211

== ENCOUNTER → 2024-06-10 | Outpatient (CLI) | payer MEDICARE, BC ==
--- NOTE | 2024-06-15 22:15 | P.PCN ---
Date of Procedure: 06/11/24 Operative Findings: Home sleep study report Date of service is 06/11/2024 Pertinent history 84-year-old female patient who has been diagnosed having obstructive sleep apnea many years back, was asked to undergo a home sleep study to reevaluate the presence of SONYA. She has some excessive daytime sleepiness. She felt unrested and she was taking naps during the day. She has other comorbidities including asthma, chronic pain, chronic sinus disease, hypertension and acid reflux in addition to history of polymyalgia rheumatica. Pertinent physical findings Height is 5 feet and weight is 150 pounds Technical description The [employer] ApneaLink system was used to complete his home sleep study. This is a type III home sleep study evaluation. The total recording duration was 8 hours and 9 minutes. The study started at 12:21 AM and the study ended at 8:30 AM. There was a total of 7 hours and 56 minutes of flow monitoring and 5 hours and 45 minutes of oxygen saturation monitoring. Results The respiratory analysis showed a total of 27 obstructive apneas and 20 obstructive hypopneas. The resulting AHI was 5.9. Oxygenation analysis The baseline pulse ox while awake was 98%. Average pulse ox during sleep was 91% with a minimum pulse ox of 58%. This patient spent approximately 1 hours and 31 minutes of sleep time below pulse ox of 89% Cardiac summary Average heart rate was 72 minimum heart rate of 44 and maximum heart rate of 204 Assessment Mild obstructive sleep apnea with an AHI of 5.9 Mild nocturnal oxygen desaturation Previous history of obstructive sleep apnea Polymyalgia rheumatica Chronic bronchial asthma Hypertension CHF Diabetes mellitus type 2 Acid reflux chronic pain Plan This is a case of mild obstructive sleep apnea. The patient has trialed CPAP therapy in the past and she has not been tolerant. Alternatives need to be considered including the possibility of an oral appliance and the patient can be referred to her dentist or grant coordinator in this regard. There is same time, she needs to sleep on her side and keep the head of the bed elevated by utilizing f ew pillows. Avoid alcohol drinking at least 3 hours prior to going to bed. This disease severity is mild and does not warrant CPAP therapy at this point in time specially the patient has failed treatment in the past. Consider oral appliance.
== END ==
LOC: 3 N SLEEP 16:49
PROVIDERS: ATTEND Internal Medicine Critical Care Medicine

== ENCOUNTER 2024-06-16 12:43 | Day surgery (SDC) | payer MEDICARE, BC ==
[~2024-06-16 12:43] MED LIST changes: -LIDOCAINE 1% (10MG/ML) FOR IV START INTRADERMA PRN
[2024-06-16 13:44] VITALS: TEMP 98
[2024-06-16 13:53] LABS: Glucose,Whole Blood 97 mg/dL (70-110)
[2024-06-16] MEDS ORDERED: DEXAMETHASONE SOD PHOSPHATE 10 MG/ML 1 ML VIAL ONE (14:13)
[2024-06-16 14:40] VITALS: PULSE 92
[2024-06-16 14:42] VITALS: RESP 16
[2024-06-16 14:59] VITALS: BP 162/70
--- NOTE | 2024-06-16 15:17 | FL ---
EXAMINATION TYPE: FL guided pain mgmt statistic DATE OF EXAM: 06/16/2024 2:38 PM COMPARISON: Pre Operative Images if available both CT/MRI or plain film CLINICAL INDICATION: Female, 84 years old with history of PAIN; TECHNIQUE: FL guided pain mgmt statistic, multiple fluoroscopic images provided for procedure. Total fluoroscopy time: 37 seconds Total submitted images to PACS: 2 DAP: [id number] mGym2 Gycm2 uGym2 cGycm2 or equivalent. FINDINGS: Fluoroscopic images during injection for pain management demonstrate multilevel degeneration changes throughout the spine. No evidence for fracture. No acute process identified. IMPRESSION: 1. No evidence for intraoperative complication. 2. Please see the operative/procedural note for further details. [facility], , 06/16/2024 3:15 PM
--- NOTE | 2024-06-16 18:29 | P.PCN ---
Date of Procedure: 06/16/24 Procedure(s) Performed: PREOPERATIVE DIAGNOSIS: 1-cervical radiculopathy . 2-cervical degenerative disc disease. 3-cervical spondylosis with cervical facet arthropathy without myelopathy POSTOPERATIVE DIAGNOSIS: Same As preop diagnosis PROCEDURE 1. Transforaminal epidural steroid injection under fluoroscopic guidance at bilateral C6-7 level. (Fluoroscopy images stored on file in the radiology Department ) 2. Lumbar epidurogram . ANESTHESIA: Local with 1% lidocaine 3 ml. EBL: Minimal PROCEDURE INDICATION: The patient with chronic severe neck pain pain and radiculopathy symptoms unresponsive to conservative treatment. PROCEDURE DESCRIPTION / TECHNIQUE: The patient was seen and identified in the preoperative area. Risks, benefits, complications, and alternatives were discussed with the patient. The patient agreed to proceed with the procedure and signed the consent, and vital signs were stable. Patient was taken to the OR and time out was completed. The patient was placed in the lateral position on procedure table (right side up ). The cervical area was prepped and draped in the usual sterile fashion. Critical pause was taken. Vital signs were closely monitored during the procedure. Using oblique fluoroscopy, the chin of the `Genevieve dog at Right C6-7 level was identified, and the skin and deeper tissues just below was localized with 1% lidocaine. Subsequently, a 22-gauge 3.5-inch spinal needle was advanced under a tunneled view fluoroscopic guidance just underneath the chin of the `Yaely dog at the right C6-7 Under lateral fluoroscopy, the needle was then advanced to the posterior border of the interforaminal space. After negative aspiration of CSF and blood and with no paresthesias, Isovue was not injected because patient had allergy to IVP dye, subsequently, 1 mL of block solution containing 7 mg Dexamethason and 1 mL of 0.9% normal saline PF was injected. Needle was removed and the same procedure was repeated at the left C6-7. At the end of the procedure, skin was cleansed, and bandages were applied. COMPLICATIONS:none DISPOSITION / PLANS: The patient was placed in a supine position and transferred to the recovery area in a stable condition for observation. There was no evidence of lower extremity motor or sensory deficit after the procedure. Patient was discharged from the recovery room after meeting discharge criteria. Home discharge instructions were given to the patient by the staff. The patient was reexamined prior to discharge.
== END 2024-06-16 15:06 | disposition home or self-care (01) ==
LOC: ORPAIN 12:43
PROVIDERS: ATTEND Specialist
DX: M54.12 Radiculopathy, cervical region
CPT/HCPCS: 64479

== ENCOUNTER → 2024-06-29 | Outpatient (CLI) | payer MEDICARE, BC ==
[2024-06-29 14:32] VITALS: BP 138/74; PULSE 91; RESP 16; TEMP 97.5
--- NOTE | 2024-07-01 07:59 | P.PAINPG ---
Objective - Vital Signs Vital signs: Vital Signs Temp 97.5 F L 06/29/24 14:26 Pulse 91 06/29/24 14:26 Resp 16 06/29/24 14:26 BP 138/74 06/29/24 14:26 Pulse Ox 100 06/29/24 14:26 FiO2 Intake & Output 06/28/24 06/29/24 06/29/24 18:59 06:59 18:59 Weight 150 kg PQRS Measure Charge Sheet Mode of Arrival: Ambulatory Comment: HISTORY OF PRESENT ILLNESS: An 84 year old female presents today with neck pain > 25 yrs due to radiculopathy, spinal stenosis, severe neuroforaminal stenoses and facet arthropathy for evaluation s/p BL TFESI C6-C7 #1. Pt stats she experienced 60% pain relief x 2 wks s/p procedure. Neck pain is provoked at 6 / 10 in intensity, predominantly axial, dull / achy in character without radiation. Pain is provoked by rotation and flexion. Pain is relieved with PT x 6 wks which ended in Oct 2023, physician guided stretches daily (cervical) since Oct 2023, medications, topicals, heat, physical therapy, stretching, use of a soft c- collar, massage, repositioning and rest. Interventional procedures include BL TFESI C6-C7 x1 (Jun 2024) Medications include REVIEW OF ORGAN SYSTEMS: CONSTITUTIONAL: No fevers or chills. No recent weight loss. HEENT: No visual acuity loss, eye pain, difficulties with hearing. No nosebleeds. No difficulty swallowing. RESPIRATORY: Denies any troubles with breathing or dyspnea on exertion. CARDIOVASCULAR: Denies any chest pain, palpitations, or recent heart attacks. GASTROINTESTINAL: Denies fatty food intolerance. Has change in bowel habits and gas bloat. GENITOURINARY: Denies any blood in urine. Has increased urinary frequency. NEUROLOGICAL: + numbness and tingling along the distal extremities. No seizure disorders or headaches. MUSCULOSKELETAL: + back pain SKIN: No skin cancer. No rash. PSYCHIATRIC: Denies current depression or suicidal thoughts. ENDOCRINE: Denies current thyroid disorders. Denies any blood sugar glucose intolerance. HEME/LYMPHATIC: Denies any lumps and bumps around the neck. History of deep venous thrombosis. ALLERGY/IMMUNOLOGY: No immunoglobulin therapy. No immune deficiencies. BREAST: Denies current breast lumps, pain or nipple discharge. Physical Examinations : Constitutional : Cooperative , not in acute distress . HEENT: Neck supple. No Lymphadenopathy. Normal thyroid size . Eyes no ptosis , no icterus, no photophobia . Hearing intact. Normal oropharynx. No Thrush. Respiratory : Chest clear to auscultations bilaterally. No wheezing. No rhonchi. Cardiovascular : Regular rate and rhythm , S1 / S2. No S3 . No S4. Gastrointestinal : Abdomen soft. No tenderness. Bowel sounds x 4. No organomegaly . Genitourinary : Deferred. Neurologic : Cranial nerve II to XII intact. No focal neurological deficits. Psychiatric : alert & oriented x 3. Matching mood & appropriate affect. Judgment & insight intact. Lymphatic No Lymphadenopathy. Musculoskeletal : Cervical Spine: 3 inch well-healed vertical incisional scar in the midline Motor strength in the deltoid and biceps: Normal right side. Normal Left side Motor strength biceps and the wrist extensors: Normal right side . Normal left side Motor strength in the triceps muscle: Normal right side. Normal left side Deep tendon reflexes: Normal at the biceps. Normal at Brachioradialis. Normal at triceps Cervical facet loading test: positive BL C4-C5/ C5-C6 Vertebral body TTP over C6 Spurling test: positive bilaterally C6- C7 Neck distraction test: positive bilaterally Sukh sign: positive bilaterally Lumbar spine Motor strength lower extremities ,thigh and legs 5/5 Right side , 5/5 Left side Deep tendon reflexes : Normal Knee Jerk. Normal Ankle Jerk Lumbar facet Loading Test: positive Right / positive Left Range of motion of the lumbar spine Flexion 30 degrees, extension 10 degrees Straight Leg Raise test: Left/ Right positive at degree Susy test: positive right / positive left. Severe tenderness over the Sacroiliac joint on the Right / Left sides Gaenslen test: positive bilaterally Seated flexion test: positive bilaterally. Imaging: Awaiting MRI of the Cervical Spine from 10/18/23 from [facility] Assessment/ Plan : Recommendation of BL MBB C4-C5/ C5-C6 #1. Risks, benefits of procedure discussed and patient verbalized understanding. Protocol for discontinuation/ continuation of medications vanessa procedure discussed. Minimal anesthesia including Fentanyl and Versed if clinically indicated. All questions answered I have spent greater than 50 minutes on patient care today. Dr Morgan was available by phone for the evaluation of this patient. The time was used to review the medical records including relevant urine studies and Prescription history (MAPs), review of the available imaging, evaluation and examination of the patient, coordination of care with the medical staff and if applicable referring physicians, as well as creation of the medical record - Pain Location Neck Non-Pharmacological Interventions: Heat, Position/Reposition Pharmacological Interventions: PRN Medication PQRS Narrative: Smoking Status Never smoker Narcotic Agreement Date Signed 06/29/24 Blood Pressure 138/74 Pain Intensity [Neck] 5 Scale Used Numeric (1 - 10) Home Medications: Ambulatory Orders Cholecalciferol [Vitamin D3 (25 Mcg = 1000 Iu)] 5,000 unit PO DAILY 01/16/14 Montelukast [Singulair] 10 mg PO DAILY 01/16/14 Telmisartan [Micardis] 40 mg PO DAILY 01/16/14 Ascorbic Acid [Vitamin C] 500 mg PO DAILY 10/31/16 Aspirin [Adult Low Dose Aspirin EC] 81 mg PO Q48H 10/31/16 HYDROcodone/APAP 5-325MG [Gould 5-325] 1 tab PO Q4H PRN 10/31/16 Pioglitazone [Actos] 30 mg PO DAILY 09/08/21 Budesonide/Formoterol Fumarate [Breyna 160-4.5 Mcg Inhaler] 2 inh INHALATION DAILY 06/12/24 Controlled Substance Measures - Controlled Substance Measures Is patient prescribed a controlled substance at discharge?: No
== END ==
LOC: PNWHC3 13:43
PROVIDERS: ATTEND Specialist
DX: M48.02 Spinal stenosis, cervical region (principal); M47.22 Other spondylosis with radiculopathy, cervical region; Z91.041 Radiographic dye allergy status; Z88.2 Allergy status to sulfonamides; Z88.8 Allergy status to other drugs, medicaments and biological substances; Z91.018 Allergy to other foods; Z88.5 Allergy status to narcotic agent; Z91.011 Allergy to milk products
CPT/HCPCS: 99211

== ENCOUNTER 2024-11-10 13:31 | Emergency (ER) | payer MEDICARE, BC ==
--- NOTE | 2024-11-10 15:39 | ED ---
Back Pain HPI - General Chief Complaint: Back Pain/Injury Stated Complaint: Back pain Time Seen by Provider: 11/10/24 15:00 Source: patient, RN notes reviewed Limitations: no limitations - History of Present Illness Initial Comments: 84-year-old female presenting for mid back pain x 4 days. States she has a herniated disc of the thoracic spine and has upcoming appointment with orthopedic surgeon through [place]. She has scheduled for upcoming MRI however pain has worsened. She was seen by PCP Dr. Miller yesterday who provided her with steroid injection that she reports has not helped. She also takes [place] and pain patches with little relief. Pain is predominantly left-sided and occasionally radiates down the leg. Denies bowel or bladder incontinence, saddle anesthesia. Denies bilateral lower extremity numbness, tingling, or weakness. States she has a history of back surgery for herniated disc 15 years ago which felt similar. She had an x-ray of her back 4 months ago otherwise no imaging. His fevers, nausea, vomiting, diarrhea, urinary symptoms. Denies i njury or trauma. Denies blood thinners. - Related Data Home Medications Medication Instructions Recorded Confirmed Cholecalciferol [Vitamin D3 (25 5,000 unit PO DAILY 01/16/14 06/12/24 Mcg = 1000 Iu)] Montelukast [Singulair] 10 mg PO DAILY 01/16/14 06/12/24 Telmisartan [Micardis] 40 mg PO DAILY 01/16/14 06/12/24 Ascorbic Acid [Vitamin C] 500 mg PO DAILY 10/31/16 06/12/24 Aspirin [Adult Low Dose Aspirin EC] 81 mg PO Q48H 10/31/16 06/12/24 HYDROcodone/APAP 5-325MG [[place] 1 tab PO Q4H PRN 10/31/16 06/12/24 5-325] Pioglitazone [Actos] 30 mg PO DAILY 09/08/21 06/12/24 Budesonide/Formoterol Fumarate 2 inh INHALATION DAILY 06/12/24 06/12/24 [Breyna 160-4.5 Mcg Inhaler] Previous Rx's Medication Instructions Recorded HYDROcodone/APAP 10-325MG [[place] 1 tab PO Q6HR PRN 3 Days #12 tab 11/10/24 10-325] Lidocaine 5% Patch [Lidoderm 5% 1 each TP DAILY PRN 7 Days #7 patch 11/10/24 Patch] methocarbamoL [Robaxin] 500 mg PO TID PRN #15 tab 11/10/24 Allergies Allergy/AdvReac Type Severity Reaction Status Date / Time Iodine and Iodide Containing Allergy Unknown Verified 06/16/24 13:45 Produc Milk Containing Products Allergy Unknown Verified 06/16/24 13:45 (Dairy) [Milk Containing Products] chocolate flavor AdvReac Unknown Verified 06/16/24 13:45 Milnor And Derivatives AdvReac Unknown Verified 06/16/24 13:45 [Milnor] mold AdvReac Unknown Verified 11/10/24 13:59 propoxyphene HCl AdvReac headaches Verified 06/16/24 13:45 [From Darvon] Sulfa (Sulfonamide AdvReac Rash/Hives Verified 06/16/24 13:45 Antibiotics) tomato AdvReac Unknown Verified 06/16/24 13:45 Review of Systems ROS Statement: Those systems with pertinent positive or pertinent negative responses have been documented in the HPI. ROS Other: All systems not noted in ROS Statement are negative. Past Medical History Past Medical History: Asthma, Diabetes Mellitus, Fibromyalgia, GERD/Reflux, Hypertension, Musculoskeletal Disorder, Osteoarthritis (OA) Additional Past Medical History / Comment(s): Recently had "increased acid reflux symptoms and nausea and diarrhea". Chronic neck & back pain. Signifi cantly increased upper back pain. History of Any Multi-Drug Resistant Organisms: None Reported Past Surgical History: Back Surgery, Breast Surgery, Cholecystectomy, Hysterectomy, Orthopedic Surgery, Tonsillectomy Additional Past Surgical History / Comment(s): Bowel resection, colostomy with reversal, bilateral carpal tunnel and "locked fingers", back surgery X3, cervical surgery 08/21, breast biopsies, "shots in knees, back injections". Past Anesthesia/Blood Transfusion Reactions: Motion Sickness Past Psychological History: No Psychological Hx Reported Smoking Status: Never smoker Past Alcohol Use History: None Reported Past Drug Use History: None Reported - Past Family History Sister(s) Family Medical History: Cancer Additional Family Medical History / Comment(s): Breast cancer. Mother Family Medical History: Diabetes Mellitus Father Family Medical History: No Reported History General Exam Limitations: no limitations General appearance: alert, in no apparent distress Head exam: Present: atraumatic, normocephalic, normal inspection Eye exam: Present: normal appearance, PERRL, EOMI. Absent: scleral icterus, conjunctival injection, periorbital swelling Cardiovascular Exam: Present: regular rate, normal rhythm, normal heart sounds. Absent: systolic murmur, diastolic murmur, rubs, gallop, clicks GI/Abdominal exam: Present: soft, normal bowel sounds. Absent: distended, te nderness, guarding, rebound, rigid Back exam: Present: normal inspection, full ROM, tenderness (Mild left-sided paraspinal tenderness of thoracic region of spine), paraspinal tenderness, other (No saddle anesthesia. Full range of motion of bilateral hips with full sensation and DP pulses bilaterally). Absent: CVA tenderness (R), CVA tenderness (L), vertebral tenderness Neurological exam: Present: alert, oriented X3 Psychiatric exam: Present: normal affect, normal mood Skin exam: Present: warm, dry, intact, normal color. Absent: rash Course Vital Signs 11/10/24 11/10/24 13:53 18:22 Temperature 98.0 F 99.1 F Pulse Rate 79 68 Respiratory 16 18 Rate Blood Pressure 142/71 162/78 O2 Sat by Pulse 96 979 H Oximetry Medical Decision Making - Medical Decision Making Was pt. sent in by a medical professional or institution ([facility], [employer], urgent care, hospital, or long-term...) When possible be specific @ -No Did you speak to anyone other than the patient for history (EMS, parent, family, police, friend...)? What history was obtained from this source @ -No Did you review nursing and triage notes (agree or disagree)? Why? @ -I reviewed and agree with nursing and triage notes Were old charts reviewed (outside hosp., previous admission, EMS record, old EKG, old radiological studies, urgent care reports/EKG's, long-term records)? Report findings @ -No old charts were reviewed Differential Diagnosis (chest pain, altered mental status, abdominal pain women, abdominal pain men, vaginal bleeding, weakness, fever, dyspnea, syncope, headache, dizziness, GI bleed, back pain, seizure, CVA, palpatations, mental health, musculoskeletal)? @ -Differential Back Pain: Strain, zoster, cauda equina syndrome, epidural abscess, vertebral osteomyelitis, discitis, fracture, subluxation, disc herniation, DJD, spinal stenosis, dissection, AAA, pancreatitis, peptic ulcer disease, pyelonephritis, kidney stone, this is not meant to be an all-inclusive list. EKG interpreted by me (3pts min.). @ -None X-rays interpreted by me (1pt min.). @ -None done CT interpreted by me (1pt min.). @ -CT thoracic/lumbar spine reveals no evidence of fracture of lumbar spine, posterior osteophytes/calcifications at T11-T12 with mild spinal canal stenosis, cardiomegaly with pulmonary vascular congestion, stable right lower lobe 6 mm pulmonary nodule U/S interpreted by me (1pt. min.). @ -None done What testing was considered but not performed or refused? (CT, X-rays, U/S, labs)? Why? @ -None What meds were considered but not given or refused? Why? @ -None Did you discuss the management of the patient with other professionals (professionals i.e. , PA, [employer], lab, RT, psych nurse, group social worker, acoustical logging engineer, teacher, logistics officer, residential case manager)? Give summary @ -No Was smoking cessation discussed for >3mins.? @ -No Was critical care preformed (if so, how long)? @ -No Were there social determinants of health that impacted care today? How? (Homelessness, low income, unemployed, alcoholism, drug addiction, transportation, low edu. Level, literacy, decrease access to med. care, [facility], rehab)? @ -No Was there de-escalation of care discussed even if they declined (Discuss DNR or withdrawal of care, Hospice)? DNR status @ -No What co-morbidities impacted this encounter? (DM, HTN, Smoking, COPD, CAD, Cancer, CVA, ARF, Chemo, Hep., AIDS, mental health diagnosis, sleep apnea, morbid obesity)? @ -None Was patient admitted / discharged? Hospital course, mention meds given and route, prescriptions, significant lab abnormalities, going to OR and other pertinent info. @ - discharge. 84-year-old female with history of herniated disc presenting for mid back pain x 4 days. No red flag symptoms. Neurovascularly intact. Provided with dose of morphine and Norflex. Lab work remarkable for mild leukocytosis of 14.5 likely due to steroid use. BUN 47. CT thoracic/lumbar spine reveals no evidence of fracture of lumbar spine, posterior osteophytes/calcifications at T11-T12 with mild spinal canal stenosis. Results discussed with patient. Patient will be provided additional dose of morphine and provided with outpatient prescription for [place], lidocaine patches, and muscle relaxers. Advised close follow-up with orthopedics. Appropriate return precautions/supportive care discussed. Case was discussed with my ED attending Dr. Caal. Undiagnosed new problem with uncertain prognosis? @ -No Drug Therapy requiring intensive monitoring for toxicity (Heparin, Nitro, Insulin, Cardizem)? @ -No Were any procedures done? @ -No Diagnosis/symptom? @ -Thoracic spinal stenosis Acute, or Chronic, or Acute on Chronic? @ -Acute Uncomplicated (without systemic symptoms) or Complicated (systemic symptoms)? @ -Uncomplicated Side effects of treatment? @ -No Exacerbation, Progression, or Severe Exacerbation? @ -No Poses a threat to life or bodily function? How? (Chest pain, USA, NH, pneumonia, PE, COPD, DKA, ARF, appy, cholecystitis, CVA, Diverticulitis, Homicidal, Suicidal, threat to staff... and all critical care pts) @ -No - Lab Data Result diagrams: 11/10/24 15:44 11/10/24 15:44 Lab Results 11/10/24 11/10/24 Range/Units 15:44 15:44 WBC 14.5 H (3.8-10.6) k/uL RBC 4.19 (3.80-5.40) m/uL Hgb 12.4 (11.4-16.0) gm/dL Hct 39.9 (34.0-46.0) % MCV 95.3 (80.0-100.0) fL MCH 29.6 (25.0-35.0) pg MCHC 31.1 (31.0-37.0) g/dL RDW 13.8 (11.5-15.5) % Plt Count 211 (150-450) k/uL MPV 7.9 Neutrophils % 87 % Lymphocytes % 8 % Monocytes % 4 % Eosinophils % 0 % Basophils % 0 % Neutrophils # 12.7 H (1.3-7.7) k/uL Lymphocytes # 1.2 (1.0-4.8) k/uL Monocytes # 0.6 (0-1.0) k/uL Eosinophils # 0.0 (0-0.7) k/uL Basophils # 0.0 (0-0.2) k/uL Sodium 137 (137-145) mmol/L Potassium 5.0 (3.5-5.1) mmol/L Chloride 101 (98-107) mmol/L Carbon Dioxide 28 (22-30) mmol/L Anion Gap 8 mmol/L BUN 47 H (7-17) mg/dL Creatinine 0.83 (0.52-1.04) mg/dL Est GFR (CKD-EPI)AfAm 74 (>60 ml/min/1.73 sqM) Est GFR (CKD-EPI)NonAf 64 (>60 ml/min/1.73 sqM) Glucose 129 H (74-99) mg/dL Calcium 10.0 (8.4-10.2) mg/dL Total Bilirubin 0.7 (0.2-1.3) mg/dL AST 31 (14-36) U/L ALT 27 (4-34) U/L Alkaline Phosphatase 55 (38-126) U/L Total Protein 7.3 (6.3-8.2) g/dL Albumin 4.7 (3.5-5.0) g/dL Disposition Clinical Impression: Thoracic spinal stenosis Disposition: HOME SELF-CARE Condition: Stable Instructions (If sedation given, give patient instructions): Back Pain (ED) Additional Instructions: Take [place], Robaxin, and lidocaine patches as needed for pain. Follow-up with orthopedics as discussed. Please return to the Emergency Department if symptoms worsen or any other concerns. Prescriptions: Lidocaine 5% Patch [Lidoderm 5% Patch] 1 each TP DAILY PRN 7 Days #7 patch PRN Reason: Pain HYDROcodone/APAP 10-325MG [[place] 10-325] 1 tab PO Q6HR PRN 3 Days #12 tab PRN Reason: Pain methocarbamoL [Robaxin] 500 mg PO TID PRN #15 tab PRN Reason: muscle spasms Is patient prescribed a controlled substance at d/c from ED?: Yes When asked, does pt state using other controlled substances?: No If prescribed controlled substance>3 days was MAPS reviewed?: Prescribed <3 Days If opioid is for acute pain is fill amount 7 days or less?: Yes Referrals: Armani Miller MD [Primary Care Provider] - 1-2 days Time of Disposition: 19:04
[2024-11-10 16:09] LABS: Basophils % (A) 0 %; Eosinophils % (A) 0 %; HCT 39.9 % (34.0-46.0); HGB 12.4 gm/dL (11.4-16.0); Lymphocytes # (A) 1.2 k/uL (1.0-4.8); Lymphocytes % (A) 8 %; MCH 29.6 pg (25.0-35.0); MCHC 31.1 g/dL (31.0-37.0); MCV 95.3 fL (80.0-100.0); Mean Platelet Volume 7.9; Monocytes # (A) 0.6 k/uL (0-1.0); Monocytes % (A) 4 %; Neutrophils # (A) 12.7 k/uL (1.3-7.7); Neutrophils % (A) 87 %; Platelet Count 211 k/uL (150-450); RBC 4.19 m/uL (3.80-5.40); RDW 13.8 % (11.5-15.5); WBC 14.5 k/uL (3.8-10.6)
[2024-11-10] MEDS: ORPHENADRINE 30 MG/ML 2 ML VIAL IVP STA (16:10)
[2024-11-10] MEDS: MORPHINE SULFATE 2 MG/ML SYRINGE IVP ONE ×2 (16:11→18:58)
[2024-11-10 16:16] LABS: ALT 27 U/L (4-34); African American GFR (CKD) 74 (>60 ml/min/1.73 sqM); Albumin 4.7 g/dL (3.5-5.0); Anion Gap 8 mmol/L; Blood Urea Nitrogen 47 mg/dL (7-17); Carbon Dioxide 28 mmol/L (22-30); Chloride 101 mmol/L (98-107); Glucose 129 mg/dL (74-99); Non-African American GFR(CKD) 64 (>60 ml/min/1.73 sqM); Sodium 137 mmol/L (137-145); Total Bilirubin 0.7 mg/dL (0.2-1.3); Total Protein 7.3 g/dL (6.3-8.2)
[2024-11-10] MEDS: KETOROLAC 15 MG/ML 1 ML VIAL IVP STA (16:16)
[2024-11-10 16:23] LABS: AST 31 U/L (14-36); Alkaline Phosphatase 55 U/L (38-126)
[2024-11-10 18:24] VITALS: PULSE 68; RESP 18
--- NOTE | 2024-11-10 18:31 | CT ---
EXAMINATION TYPE: CT thor lumbar spine wo con DATE OF EXAM: 11/10/2024 6:05 PM COMPARISON: 09/14/2018 CLINICAL INDICATION: Female, 84 years old with history of mid back pain; Chronic back pain. TECHNIQUE: Axial images of the thoracic and lumbar spine were obtained without contrast. Coronal and sagittal reformats were performed. CT Contrast: Contrast used: mL of , none. Oral contrast used: none. CT DLP: 1115.2 mGycm, Automated exposure control for dose reduction was used. FINDINGS: Multilevel degeneration changes throughout the spine with osteophyte formation and disc space narrowi ng. Posterior osteophyte at T11-T12 with mild to moderate spinal canal stenosis. Fixation L4-L5 appea rs intact. Laminectomy changes at L4-L5 present. Partial dislocation at L4-L5. Alignment is satisfact ory throughout the thoracic and lumbar spine. No evidence for high-grade spinal canal or neural joao inal stenosis. No evidence for fracture of the spine. Remote left rib injuries effusion. The heart is enlarged for size. Moderate coronary artery calcifications. Pulmonary vascular congestio n present. Right lower lobe 6 mm pulmonary nodule. Stable from 2019. Atherosclerosis of the arterial vasculature is moderate to severe. The gallbladder surgically absent. IMPRESSION: 1. No evidence of fracture of the lumbar spine. 2. Posterior osteophyte/calcification at T11-T12 with mild spinal canal stenosis. 3. Moderate degeneration changes throughout the spine. 4. No significant spinal canal or neural foraminal stenosis is identified. 5. Postsurgical changes in the lower spine L4-L5 appear intact. 6. Cardiomegaly with pulmonary vascular congestion correlate with serum BNP. 7. Right lower lobe 6 mm pulmonary nodule, stable from 2019. [facility], , 11/10/2024 6:28 PM
[2024-11-10 19:15] VITALS: BP 150/70; TEMP 98.7
== END 2024-11-10 16:56 | disposition home or self-care (01) ==
LOC: EC 13:31
DX: M48.04 Spinal stenosis, thoracic region (principal); D72.829 Elevated white blood cell count, unspecified; R91.1 Solitary pulmonary nodule
CPT/HCPCS: 36415; 80053; 85025; 72128; 72131; 99284; 96374; 96375; 96376; J2360; J2270

== ENCOUNTER 2024-11-14 14:29 | Emergency (ER) | payer MEDICARE, BC ==
[2024-11-14 14:41] VITALS: RESP 20
[2024-11-14] MEDS: HYDROmorphone 1 MG/ML 1 ML SYRINGE IM STA (15:06)
--- NOTE | 2024-11-14 15:50 | ED ---
Back Pain HPI - General Chief Complaint: Back Pain/Injury Stated Complaint: back pain Time Seen by Provider: 11/14/24 14:42 Source: patient Limitations: no limitations - History of Present Illness Initial Comments: 84-year-old female presenting with chief complaint of back pain. Pain is located on the left side of her back from her shoulder blade down to her lower back. This is chronic pain that she has had for quite a while. She was seen here on 11/[address] of the thoracic and lumbar spine that showed no significant spinal canal stenosis or neuroforaminal stenosis. Patient does have upcoming appointment for pain management, MRI, and surgical follow-up. She is down to her last pain pills and is concerned about making it through the week to these appointments. No loss of bowel or bladder control or saddle paresthesia. No fever, nausea, vomiting, abdominal pain, urinary symptoms. No injury or trauma. - Related Data Home Medications Medication Instructions Recorded Confirmed Cholecalciferol [Vitamin D3 (25 5,000 unit PO DAILY 01/16/14 06/12/24 Mcg = 1000 Iu)] Montelukast [Singulair] 10 mg PO DAILY 01/16/14 06/12/24 Telmisartan [Micardis] 40 mg PO DAILY 01/16/14 06/12/24 Ascorbic Acid [Vitamin C] 500 mg PO DAILY 10/31/16 06/12/24 Aspirin [Adult Low Dose Aspirin EC] 81 mg PO Q48H 10/31/16 06/12/24 HYDROcodone/APAP 5-325MG [[place] 1 tab PO Q4H PRN 10/31/16 06/12/24 5-325] Pioglitazone [Actos] 30 mg PO DAILY 09/08/21 06/12/24 Budesonide/Formoterol Fumarate 2 inh INHALATION DAILY 06/12/24 06/12/24 [Breyna 160-4.5 Mcg Inhaler] Previous Rx's Medication Instructions Recorded HYDROcodone/APAP 10-325MG [[place] 1 tab PO Q6HR PRN 3 Days #12 tab 11/10/24 10-325] Lidocaine 5% Patch [Lidoderm 5% 1 each TP DAILY PRN 7 Days #7 patch 11/10/24 Patch] methocarbamoL [Robaxin] 500 mg PO TID PRN #15 tab 03/11/25 HYDROcodone/APAP 10-325MG [[place] 1 tab PO Q6HR PRN 3 Days #12 tab 11/14/24 10-325] Allergies Allergy/AdvReac Type Severity Reaction Status Date / Time Iodine and Iodide Containing Allergy Unknown Verified 06/16/24 13:45 Produc Milk Containing Products Allergy Unknown Verified 06/16/24 13:45 (Dairy) [Milk Containing Products] chocolate flavor AdvReac Unknown Verified 06/16/24 13:45 Wallace And Derivatives AdvReac Unknown Verified 06/16/24 13:45 [Wallace] mold AdvReac Unknown Verified 11/10/24 13:59 propoxyphene HCl AdvReac headaches Verified 06/16/24 13:45 [From Darvon] Sulfa (Sulfonamide AdvReac Rash/Hives Verified 06/16/24 13:45 Antibiotics) tomato AdvReac Unknown Verified 06/16/24 13:45 Review of Systems ROS Statement: Those systems with pertinent positive or pertinent negative responses have been documented in the HPI. ROS Other: All systems not noted in ROS Statement are negative. Past Medical History Past Medical History: Asthma, Diabetes Mellitus, Fibromyalgia, GERD/Reflux, Hypertension, Musculoskeletal Disorder, Osteoarthritis (OA) Additional Past Medical History / Comment(s): Recently had "increased acid reflux symptoms and nausea and diarrhea". Chronic neck & back pain. Sign ificantly increased upper back pain. History of Any Multi-Drug Resistant Organisms: None Reported Past Surgical History: Back Surgery, Breast Surgery, Cholecystectomy, Hysterectomy, Orthopedic Surgery, Tonsillectomy Additional Past Surgical History / Comment(s): Bowel resection, colostomy with reversal, bilateral carpal tunnel and "locked fingers", back surgery X3, cervical surgery 08/21, breast biopsies, "shots in knees, back injections". Past Anesthesia/Blood Transfusion Reactions: Motion Sickness Past Psychological History: No Psychological Hx Reported Smoking Status: Never smoker Past Alcohol Use History: None Reported Past Drug Use History: None Reported - Past Family History Sister(s) Family Medical History: Cancer Additional Family Medical History / Comment(s): Breast cancer. Mother Family Medical History: Diabetes Mellitus Father Family Medical History: No Reported History General Exam Limitations: no limitations General appearance: alert, in no apparent distress Head exam: Present: atraumatic, normocephalic, normal inspection Eye exam: Present: normal appearance, EOMI Neck exam: Present: normal inspection. Absent: meningismus Respiratory exam: Present: normal lung sounds bilaterally. Absent: respiratory distress, wheezes, rales, rhonchi, stridor Cardiovascular Exam: Present: regular rate, normal rhythm, normal heart sounds. Absent: systolic murmur, diastolic murmur, rubs, gallop, clicks Back exam: Absent: tenderness, paraspinal tenderness, vertebral tenderness Neurological exam: Present: alert, oriented X3 Psychiatric exam: Present: normal affect, normal mood Skin exam: Present: warm, dry Course Vital Signs 11/14/24 11/14/24 14:38 16:28 Temperature 97.9 F 98.1 F Pulse Rate 89 81 Respiratory 20 20 Rate Blood Pressure 168/92 149/62 O2 Sat by Pulse 98 99 Oximetry Medical Decision Making - Medical Decision Making Was pt. sent in by a medical professional or institution ([facility], [employer], urgent care, hospital, or group home...) When possible be specific @ -No Did you speak to anyone other than the patient for history (EMS, parent, family, police, friend...)? What history was obtained from this source @ -No Did you review nursing and triage notes (agree or disagree)? Why? @ -I reviewed and agree with nursing and triage notes Were old charts reviewed (outside hosp., previous admission, EMS record, old EKG, old radiological studies, urgent care reports/EKG's, group home records)? Report findings @ -Reviewed recent visit on the , patient had thoracolumbar spine CT with no significant spinal canal or neuroforaminal stenosis Differential Diagnosis (chest pain, altered mental status, abdominal pain women, abdominal pain men, vaginal bleeding, weakness, fever, dyspnea, syncope, headache, dizziness, GI bleed, back pain, seizure, CVA, palpatations, mental health, musculoskeletal)? @ - MDM Differential Back Pain: Strain, zoster, cauda equina syndrome, epidural abscess, vertebral osteomyelitis, discitis, fracture, subluxation, disc herniation, DJD, spinal stenosis, dissection, AAA, pancreatitis, peptic ulcer disease, pyelonephritis, kidney stone this is not meant to be an all-inclusive list. EKG interpreted by me (3pts min.). @ -As above X-rays interpreted by me (1pt min.). @ -None done CT interpreted by me (1pt min.). @ -None done U/S interpreted by me (1pt. min.). @ -None done What testing was considered but not performed or refused? (CT, X-rays, U/S, labs)? Why? @ -None What meds were considered but not given or refused? Why? @ -None Did you discuss the management of the patient with other professionals (professionals i.e. DrZhen, PA, [employer], lab, RT, psych nurse, clinical social worker, greaser helper, teacher, prison officer, heel caser)? Give summary @ -No Was smoking cessation discussed for >3mins.? @ -No Was critical care preformed (if so, how long)? @ -No Were there social determinants of health that impacted care today? How? (Homelessness, low income, unemployed, alcoholism, drug addiction, transportation, low edu. Level, literacy, decrease access to med. care, halfway, rehab)? @ -No Was there de-escalation of care discussed even if they declined (Discuss DNR or withdrawal of care, Hospice)? DNR status @ -No What co-morbidities impacted this encounter? (DM, HTN, Smoking, COPD, CAD, Cancer, CVA, ARF, Chemo, Hep., AIDS, mental health diagnosis, sleep apnea, morbid obesity)? @ -None Was patient admitted / discharged? Hospital course, mention meds given and route, prescriptions, significant lab abnormalities, going to OR and other pertinent info. @ -84-year-old female presenting with chief complaint of back pain. No injury. No red flag symptoms. This is chronic pain. She is on her last pain pills and is concerned about making it to her upcoming appointments this week without anything for the pain. I will refill the patient's [place] which she states helps the pain. Also provided the patient with some magnesium citrate for her constipation while taking these medications. She will follow-up at her scheduled appointments this week. Follow-up with PCP. Report back to ER with any new or worsening symptoms. Discussed return parameters and answered all questions. Patient conveyed verbal understanding and agreed to the plan. I discussed this case in detail with my attending Dr. Gustafson Undiagnosed new problem with uncertain prognosis? @ -No Drug Therapy requiring intensive monitoring for toxicity (Heparin, Nitro, Insulin, Cardizem)? @ -No Were any procedures done? @ -No Diagnosis/symptom? @ -Back pain Acute, or Chronic, or Acute on Chronic? @ -Acute on chronic Uncomplicated (without systemic symptoms) or Complicated (systemic symptoms)? @ -Uncomplicated Side effects of treatment? @ -No Exacerbation, Progression, or Severe Exacerbation? @ -No Poses a threat to life or bodily function? How? (Chest pain, USA, CT, pneumonia, PE, COPD, DKA, ARF, appy, cholecystitis, CVA, Diverticulitis, Homicidal, Suicidal, threat to staff... and all critical care pts) @ -low Likelihood Disposition Clinical Impression: Mid back pain, Low back pain Disposition: HOME SELF-CARE Condition: Good Instructions (If sedation given, give patient instructions): Back Pain (ED), Lower Back Exercises (ED) Additional Instructions: Follow-up with your PCP, painter chassis, surgeon. Report back to ER with any new or worsening symptoms. Take medication as prescribed. Prescriptions: HYDROcodone/APAP 10-325MG [[place] 10-325] 1 tab PO Q6HR PRN 3 Days #12 tab PRN Reason: Pain Is patient prescribed a controlled substance at d/c from ED?: Yes When asked, does pt state using other controlled substances?: No If prescribed controlled substance>3 days was MAPS reviewed?: Prescribed <3 Days If opioid is for acute pain is fill amount 7 days or less?: Yes Referrals: Armani Miller MD [Primary Care Provider] - 1-2 days Time of Disposition: 15:50
[2024-11-14] MEDS: MAGNESIUM CITRATE 296 ML BOTTLE PO ONE (16:28)
[2024-11-14 16:31] VITALS: BP 149/62; PULSE 81; TEMP 98.1
== END 2024-11-14 16:31 | disposition home or self-care (01) ==
LOC: EC 14:29
DX: M54.50 Low back pain, unspecified (principal); M54.6 Pain in thoracic spine; Z88.2 Allergy status to sulfonamides; Z88.8 Allergy status to other drugs, medicaments and biological substances; Z91.041 Radiographic dye allergy status; Z91.011 Allergy to milk products; Z91.018 Allergy to other foods
CPT/HCPCS: 96372; 99284; J1171

== ENCOUNTER → 2024-11-23 | Outpatient (CLI) | payer MEDICARE, BC ==
[2024-11-23 09:47] VITALS: BP 155/62; PULSE 83; RESP 16; TEMP 97.1
--- NOTE | 2024-11-23 14:44 | P.PAINPG ---
Objective - Vital Signs Vital signs: Vital Signs Temp 97.1 F L 11/23/24 09:42 Pulse 83 11/23/24 09:42 Resp 16 11/23/24 09:42 BP 155/62 11/23/24 09:42 Pulse Ox 97 11/23/24 09:42 FiO2 Intake & Output 11/22/24 11/23/24 11/23/24 18:59 06:59 18:59 Weight 68.039 kg PQRS Measure Charge Sheet Mode of Arrival: Ambulatory Comment: HISTORY OF PRESENT ILLNESS: An 84 year old female w daughter at side presents today with LBP and neck pain > 25 yrs due to radiculopathy, cervical spinal stenosis, spondylosis and facet arthropathy for evaluation. Neck pain is provoked at 6 / 10 in intensity, predominantly axial, achy in character w occasional radiation the L hip and LLE. Pain is provoked by rotation and flexion. Pain is relieved with PT x 6 wks which ended in Oct 2023 (cervical), PT x 6 wks which ended in Aug 2024 (lumbar), physician guided stretches daily since Aug 2024 (cerv, lumb), medications, topicals, heat, physical therapy, stretching, use of a soft c-collar, massage, repositioning and rest. Interventional procedures include BL TFESI C6-C7 x1 (Jun 2024) Medications include Crawford, Robaxin, Lidoderm REVIEW OF ORGAN SYSTEMS: CONSTITUTIONAL: No fevers or chills. No recent weight loss. HEENT: No visual acuity loss, eye pain, difficulties with hearing. No nosebleeds. No difficulty swallowing. RESPIRATORY: Denies any troubles with breathing or dyspnea on exertion. CARDIOVASCULAR: Denies any chest pain, palpitations, or recent heart attacks. GASTROINTESTINAL: Denies fatty food intolerance. Has change in bowel habits and gas bloat. GENITOURINARY: Denies any blood in urine. Has increased urinary frequency. NEUROLOGICAL: + numbness and tingling along the distal extremities. No seizure disorders or headaches. MUSCULOSKELETAL: + back pain SKIN: No skin cancer. No rash. PSYCHIATRIC: Denies current depression or suicidal thoughts. ENDOCRINE: Denies current thyroid disorders. Denies any blood sugar glucose intolerance. HEME/LYMPHATIC: Denies any lumps and bumps around the neck. History of deep venous thrombosis. ALLERGY/IMMUNOLOGY: No immunoglobulin therapy. No immune deficiencies. BREAST: Denies current breast lumps, pain or nipple discharge. Physical Examinations : Constitutional : Cooperative , not in acute distress . HEENT: Neck supple. No Lymphadenopathy. Normal thyroid size . Eyes no ptosis , no icterus, no photophobia . Hearing intact. Normal oropharynx. No Thrush. Respiratory : Chest clear to auscultations bilaterally. No wheezing. No rhonchi. Cardiovascular : Regular rate and rhythm , S1 / S2. No S3 . No S4. Gastrointestinal : Abdomen soft. No tenderness. Bowel sounds x 4. No organomegaly . Genitourinary : Deferred. Neurologic : Cranial nerve II to XII intact. No focal neurological deficits. Psychiatric : alert & oriented x 3. Matching mood & appropriate affect. Judgment & insight intact. Lymphatic No Lymphadenopathy. Musculoskeletal : Cervical Spine: 3 inch well-healed vertical incisional scar in the midline Motor strength in the deltoid and biceps: Normal right side. Normal Left side Motor strength biceps and the wrist extensors: Normal right side . Normal left side Motor strength in the triceps muscle: Normal right side. Normal left side Deep tendon reflexes: Normal at the biceps. Normal at Brachioradialis. Normal at triceps Cervical facet loading test: positive BL C4-C5/ C5-C6 Vertebral body TTP over C6 Spurling test: positive bilaterally C6- C7 Neck distraction test: positive romeo aterally Sukh sign: positive bilaterally Lumbar spine Motor strength lower extremities ,thigh and legs 5/5 Right side , 5/5 Left side Deep tendon reflexes : Normal Knee Jerk. Normal Ankle Jerk Lumbar facet Loading Test: positive Right / positive Left Range of motion of the lumbar spine Flexion 30 degrees, extension 10 degrees Straight Leg Raise test: Left/ Right positive at degree Susy test: positive right / positive left. Severe tenderness over the Sacroiliac joint on the Right / Left sides Gaenslen test: positive bilaterally Seated flexion test: positive bilaterally. Imaging: Awaiting MRI of the Cervical & Lumbar spine from [facility] in [facility] MRI non contrast lumbar spine from 03/08/22 reviewed Assessment/ Plan : L4-L5 post laminectomy Recommendation of medication management. Crawford 10/325mg #60 w 1 RF. Opiate/ narcotic agreement signed 11/23/24. All questions answered I have spent greater than 50 minutes on patient care today. Dr Morgan was available by phone for the evaluation of this patient. The time was used to review the medical records including relevant urine studies and Prescription history (MAPs), review of the available imaging, evaluation and examination of the patient, coordination of care with the medical staff and if applicable referring physicians, as well as creation of the medical record - Pain Location Bilateral Lower Back Non-Pharmacological Interventions: Heat, Inactivity, Physical Therapy, Posi tion/Reposition Pharmacological Interventions: Epidural, PRN Medication, Scheduled Medication, Topical Medication PQRS Narrative: Smoking Status Never smoker Narcotic Agreement Date Signed 06/29/24 Blood Pressure 155/62 Pain Intensity [Bilateral 10 Lower Back] Scale Used Numeric (1 - 10) Hx Alcohol Use (MH) No Home Medications: Ambulatory Orders Cholecalciferol [Vitamin D3 (25 Mcg = 1000 Iu)] 5,000 unit PO DAILY 01/16/14 Montelukast [Singulair] 10 mg PO DAILY 01/16/14 Telmisartan [Micardis] 40 mg PO DAILY 01/16/14 Ascorbic Acid [Vitamin C] 500 mg PO DAILY 10/31/16 Aspirin [Adult Low Dose Aspirin EC] 81 mg PO Q48H 10/31/16 HYDROcodone/APAP 5-325MG [C[place]ford 5-325] 1 tab PO Q4H PRN 10/31/16 Pioglitazone [Actos] 30 mg PO DAILY 09/08/21 Budesonide/Formoterol Fumarate [Breyna 160-4.5 Mcg Inhaler] 2 inh INHALATION DAILY 06/12/24 HYDROcodone/APAP 10-325MG [Crawford 10-325] 1 tab PO Q6HR PRN 3 Days #12 tab 11/10/24 Lidocaine 5% Patch [Lidoderm 5% Patch] 1 each TP DAILY PRN 7 Days #7 patch 11/10/24 methocarbamoL [Robaxin] 500 mg PO TID PRN #15 tab 11/10/24 HYDROcodone/APAP 10-325MG [Crawford 10-325] 1 tab PO Q6HR PRN 3 Days #12 tab 11/14/24 Controlled Substance Measures - Controlled Substance Measures Is patient prescribed a controlled substance at discharge?: Yes When asked, does pt state using other controlled substances?: No If prescribed controlled substance>3 days was MAPS reviewed?: Yes If Rx opioid, was Start Talking consent form obtained?: Yes Was information provided regarding opioid addiction?: Yes
== END ==
LOC: PNWHC3 09:19
PROVIDERS: ATTEND Specialist
DX: M96.1 Postlaminectomy syndrome, not elsewhere classified (principal); Z91.041 Radiographic dye allergy status; Z91.011 Allergy to milk products; Z91.018 Allergy to other foods; Z88.2 Allergy status to sulfonamides; Z88.8 Allergy status to other drugs, medicaments and biological substances
CPT/HCPCS: 99211

== ENCOUNTER → 2025-02-22 | Outpatient (CLI) | payer MEDICARE, BC ==
[2025-02-22 10:30] VITALS: BP 127/71; PULSE 85; RESP 16; TEMP 97.3
--- NOTE | 2025-02-22 15:59 | P.PAINPG ---
PQRS Measure Charge Sheet Comment: HISTORY OF PRESENT ILLNESS: An 84 year old female w daughter at side presents today with LBP and neck pain > 25 yrs due to radiculopathy, cervical spinal stenosis, spondylosis and facet arthropathy for evaluation. Neck pain is provoked at 6 / 10 in intensity, predominantly axial, achy in character w occasional radiation the L hip and LLE. Pain is provoked by rotation and flexion. Pain is relieved with PT x 6 wks which ended in Oct 2023 (cervical), PT x 6 wks which ended in Aug 2024 (lumbar), physician guided stretches daily since Aug 2024 (cerv, lumb), medications, topicals, heat, physical therapy, stretching, use of a soft c-collar, massage, repositioning and rest. Interventional procedures include BL TFESI C6-C7 x1 (Jun 2024) Medications include [place] 10/325mg, Robaxin, Lidoderm REVIEW OF ORGAN SYSTEMS: CONSTITUTIONAL: No fevers or chills. No recent weight loss. HEENT: No visual acuity loss, eye pain, difficulties with hearing. No nosebleeds. No difficulty swallowing. RESPIRATORY: Denies any troubles with breathing or dyspnea on exertion. CARDIOVASCULAR: Denies any chest pain, palpitations, or recent heart attacks. GASTROINTESTINAL: Denies fatty food intolerance. Has change in bowel habits and gas bloat. GENITOURINARY: Denies any blood in urine. Has increased urinary frequency. NEUROLOGICAL: + numbness and tingling along the distal extremities. No seizure disorders or headaches. MUSCULOSKELETAL: + back pain SKIN: No skin cancer. No rash. PSYCHIATRIC: Denies current depression or suicidal thoughts. ENDOCRINE: Denies current thyroid disorders. Denies any blood sugar glucose intolerance. HEME/LYMPHATIC: Denies any lumps and bumps around the neck. History of deep venous thrombosis. ALLERGY/IMMUNOLOGY: No immunoglobulin therapy. No immune deficiencies. BREAST: Denies current breast lumps, pain or nipple discharge. Physical Examinations : Constitutional : Cooperative , not in acute distress . HEENT: Neck supple. No Lymphadenopathy. Normal thyroid size . Eyes no ptosis , no icterus, no photophobia . Hearing intact. Normal oropharynx. No Thrush. Respiratory : Chest clear to auscultations bilaterally. No wheezing. No rhonchi. Cardiovascular : Regular rate and rhythm , S1 / S2. No S3 . No S4. Gastrointestinal : Abdomen soft. No tenderness. Bowel sounds x 4. No organomegaly . Genitourinary : Deferred. Neurologic : Cranial nerve II to XII intact. No focal neurological deficits. Psychiatric : alert & oriented x 3. Matching mood & appropriate affect. Judgment & insight intact. Lymphatic No Lymphadenopathy. Musculoskeletal : Cervical Spine: 3 inch well-healed vertical incisional scar in the midline Motor strength in the deltoid and biceps: Normal right side. Normal Left side Motor strength biceps and the wrist extensors: Normal right side . Normal left side Motor strength in the triceps muscle: Normal right side. Normal left side Deep tendon reflexes: Normal at the biceps. Normal at Brachioradialis. Normal at triceps Cervical facet loading test: positive BL C4-C5/ C5-C6 Vertebral body TTP over C6 Spurling test: positive bilaterally C6- C7 Neck distraction test: positive bilaterally Sukh sign: positive bilaterally Lumbar spine Motor strength lower extremities ,thigh and legs 5/5 Right side , 5/5 Left side Deep tendon reflexes : Normal Knee Jerk. Normal Ankle Jerk Lumbar facet Loading Test: positive Right / positive Left Range of motion of the lumbar spine Flexion 30 degrees, extension 10 degrees Straight Leg Raise test: Left/ Right positive at degree Susy test: positive right / positive left. Severe tenderness over the Sacroiliac joint on the Right / Left sides Gaenslen test: positive bilaterally Seated flexion test: positive bilaterally. Imaging: Awaiting MRI of the Cervical & Lumbar spine from [facility] in [facility] MRI non contrast lumbar spine from 03/08/22 reviewed Assessment/ Plan : L4-L5 post laminectomy Recommendation of medication management. [place] 7.5/325mg #90, Lyrica 25mg #30 w RF. UDS from 01/18/25 reviewed and consistent. Opiate/ narcotic agreement signed 11/23/24 ([place]) and Lyrica (02/22/25). All questions answered I have spent greater than 31 minutes on patient care today. Dr Morgan was available by phone for the evaluation of this patient. The time was used to review the medical records including relevant urine studies and Prescription history (MAPs), review of the available imaging, evaluation and examination of the patient, coordination of care with the medical staff and if applicable referring physicians, as well as creation of the medical record PQRS Narrative: Smoking Status Never smoker Narcotic Agreement Date Signed 11/23/24 Hx Alcohol Use (MH) No Home Medications: Ambulatory Orders Cholecalciferol [Vitamin D3 (25 Mcg = 1000 Iu)] 5,000 unit PO DAILY 01/16/14 Montelukast [Singulair] 10 mg PO DAILY 01/16/14 Telmisartan [Micardis] 40 mg PO DAILY 01/16/14 Ascorbic Acid [Vitamin C] 500 mg PO DAILY 10/31/16 Aspirin [Adult Low Dose Aspirin EC] 81 mg PO Q48H 10/31/16 HYDROcodone/APAP 5-325MG [[place] 5-325] 1 tab PO Q4H PRN 10/31/16 Pioglitazone [Actos] 30 mg PO DAILY 09/08/21 Lidocaine 5% Patch [Lidoderm 5% Patch] 1 each TP DAILY PRN 7 Days #7 patch 11/10/24 methocarbamoL [Robaxin] 500 mg PO TID PRN #15 tab 11/10/24 HYDROcodone/APAP 10-325MG [[place] 10-325] 1 tab PO TID PRN 30 Days #90 tab 01/18/25 HYDROcodone/APAP 10-325MG [[place] 10-325] 1 tab PO TID PRN 30 Days #90 tab 01/18/25 Ezetimibe [Zetia] 10 mg PO DAILY 02/22/25 Pravastatin Sodium [Pravachol] 20 mg PO DAILY 02/22/25 RABEprazole SODIUM [Rabeprazole Sodium] 20 mg PO 02/22/25 Controlled Substance Measures - Controlled Substance Measures Is patient prescribed a controlled substance at discharge?: Yes When asked, does pt state using other controlled substances?: Yes If prescribed controlled substance>3 days was MAPS reviewed?: Yes If Rx opioid, was Start Talking consent form obtained?: Yes Was information provided regarding opioid addiction?: Yes
== END ==
LOC: PNWHC3 09:55
PROVIDERS: ATTEND Specialist
DX: M47.816 Spondylosis without myelopathy or radiculopathy, lumbar region (principal); M96.1 Postlaminectomy syndrome, not elsewhere classified; Z91.041 Radiographic dye allergy status; Z91.011 Allergy to milk products; Z91.018 Allergy to other foods; Z91.048 Other nonmedicinal substance allergy status; Z88.2 Allergy status to sulfonamides; Z88.5 Allergy status to narcotic agent
CPT/HCPCS: 99211

== ENCOUNTER → 2025-03-11 | Outpatient (CLI) | payer MEDICARE, BC ==
[2025-03-11 11:42] VITALS: BP 116/72; PULSE 80; RESP 19; TEMP 98.9
--- NOTE | 2025-03-11 12:36 | P.PAINPG ---
PQRS Measure Charge Sheet Comment: HISTORY OF PRESENT ILLNESS: An 84 year old female presents today with LBP and neck pain > 25 yrs due to radiculopathy, cervical spinal stenosis, spondylosis and facet arthropathy for evaluation. Neck pain is provoked at 6 / 10 in intensity, predominantly axial, achy in character w occasional radiation the L hip and LLE. Pain is provoked by rotation and flexion. Pain is relieved with PT x 6 wks which ended in Oct 2023 (cervical), PT x 6 wks which ended in Aug 2024 (lumbar), physician guided stretches daily since Aug 2024 (cerv, lumb), medications, topicals, heat, physical therapy, stretching, use of a soft c-collar, massage, repositioning and rest. Interventional procedures include BL TFESI C6-C7 x1 (Jun 2024) Medications include [place] 7.5/325mg, Lyrica 25mg HS, Robaxin, Lidoderm REVIEW OF ORGAN SYSTEMS: CONSTITUTIONAL: No fevers or chills. No recent weight loss. HEENT: No visual acuity loss, eye pain, difficulties with hearing. No nosebleeds. No difficulty swallowing. RESPIRATORY: Denies any troubles with breathing or dyspnea on exertion. CARDIOVASCULAR: Denies any chest pain, palpitations, or recent heart attacks. GASTROINTESTINAL: Denies fatty food intolerance. Has change in bowel habits and gas bloat. GENITOURINARY: Denies any blood in urine. Has increased urinary frequency. NEUROLOGICAL: + numbness and tingling along the distal extremities. No seizure disorders or headaches. MUSCULOSKELETAL: + back pain SKIN: No skin cancer. No rash. PSYCHIATRIC: Denies current depression or suicidal thoughts. ENDOCRINE: Denies current thyroid disorders. Denies any blood sugar glucose intolerance. HEME/LYMPHATIC: Denies any lumps and bumps around the neck. History of deep venous thrombosis. ALLERGY/IMMUNOLOGY: No immunoglobulin therapy. No immune deficiencies. BREAST: Denies current breast lumps, pain or nipple discharge. Physical Examinations : Constitutional : Cooperative , not in acute distress . HEENT: Neck supple. No Lymphadenopathy. Normal thyroid size . Eyes no ptosis , no icterus, no photophobia . Hearing intact. Normal oropharynx. No Thrush. Respiratory : Chest clear to auscultations bilaterally. No wheezing. No rhonchi. Cardiovascular : Regular rate and rhythm , S1 / S2. No S3 . No S4. Gastrointestinal : Abdomen soft. No tenderness. Bowel sounds x 4. No organomegaly . Genitourinary : Deferred. Neurologic : Cranial nerve II to XII intact. No focal neurological deficits. Psychiatric : alert & oriented x 3. Matching mood & appropriate affect. Judgment & insight intact. Lymphatic No Lymphadenopathy. Musculoskeletal : Cervical Spine: 3 inch well-healed vertical incisional scar in the midline Motor strength in the deltoid and biceps: Normal right side. Normal Left side Motor strength biceps and the wrist extensors: Normal right side . Normal left side Motor strength in the triceps muscle: Normal right side. Normal left side Deep tendon reflexes: Normal at the biceps. Normal at Brachioradialis. Normal at triceps Cervical facet loading test: positive BL C4-C5/ C5-C6 Vertebral body TTP over C6 Spurling test: positive bilaterally C6- C7 Neck distraction test: positive bilaterally Sukh sign: positive bilaterally Lumbar spine Motor strength lower extremities ,thigh and legs 5/5 Right side , 5/5 Left side Deep tendon reflexes : Normal Knee Jerk. Normal Ankle Jerk Lumbar facet Loading Test: positive Right / positive Left Range of motion of the lumbar spine Flexion 30 degrees, extension 10 degrees Straight Leg Raise test: Left/ Right positive at degree Susy test: positive right / positive left. Severe tenderness over the Sacroiliac joint on the Right / Left sides Gaenslen test: positive bilaterally Seated flexion test: positive bilaterally. Imaging: MRI of the Cervical & Lumbar spine from [facility] in [facility] reviewed MRI non contrast lumbar spine from 03/08/22 reviewed Assessment/ Plan : L4-L5 post laminectomy, Cervical radiculopathy Recommendation of medication management and BL TFESI C6-C7 #1. Risks, benefits of procedure discussed and pt verbalized understanding. Protocol for discontinuation/ continuation of medications vanessa procedure discussed. [place] 7.5/325mg #90, Lyrica 25mg #30 w RF. UDS from 01/18/25 reviewed and consistent. Opiate/ narcotic agreement signed 11/23/24 ([place]) and Lyrica (02/22/25). All questions answered I have spent greater than 31 minutes on patient care today. Dr Morgan was available by phone for the evaluation of this patient. The time was used to review the medical records including relevant urine studies and Prescription history (MAPs), review of the available imaging, evaluation and examination of the patient, coordination of care with the medical staff and if applicable referring physicians, as well as creation of the medical record - Pain Location Back Non-Pharmacological Interventions: Inactivity Pharmacological Interventions: PRN Medication, Topical Medication PQRS Narrative: Smoking Status Never smoker Narcotic Agreement Date Signed 11/23/24 Hx Alcohol Use (MH) No Home Medications: Ambulatory Orders Cholecalciferol [Vitamin D3 (25 Mcg = 1000 Iu)] 5,000 unit PO DAILY 01/16/14 Montelukast [Singulair] 10 mg PO DAILY 01/16/14 Telmisartan [Micardis] 40 mg PO DAILY 01/16/14 Ascorbic Acid [Vitamin C] 500 mg PO DAILY 10/31/16 Aspirin [Adult Low Dose Aspirin EC] 81 mg PO Q48H 10/31/16 Pioglitazone [Actos] 30 mg PO DAILY 09/08/21 Lidocaine 5% Patch [Lidoderm 5% Patch] 1 each TP DAILY PRN 7 Days #7 patch 11/10/24 methocarbamoL [Robaxin] 500 mg PO TID PRN #15 tab 11/10/24 Ezetimibe [Zetia] 10 mg PO DAILY 02/22/25 Pravastatin Sodium [Pravachol] 20 mg PO DAILY 02/22/25 RABEprazole SODIUM [Rabeprazole Sodium] 20 mg PO 02/22/25 HYDROcodone/APAP 7.5-325MG [[place] 7.5-325] 1 tab PO TID PRN 30 Days #90 tab 03/11/25 HYDROcodone/APAP 7.5-325MG [[place] 7.5-325] 1 tab PO TID PRN 30 Days #90 tab 03/11/25 Pregabalin [Lyrica] 25 mg PO HS 30 Days #30 cap 03/11/25 diazePAM [Valium] 5 mg PO DAILY 1 Days #1 tab 03/11/25 Controlled Substance Measures - Controlled Substance Measures Is patient prescribed a controlled substance at discharge?: Yes When asked, does pt state using other controlled substances?: No If prescribed controlled substance>3 days was MAPS reviewed?: Yes
== END ==
LOC: PNWHC3 11:25
PROVIDERS: ATTEND Specialist
DX: M47.22 Other spondylosis with radiculopathy, cervical region (principal); Z98.890 Other specified postprocedural states; Z91.041 Radiographic dye allergy status; Z91.011 Allergy to milk products; Z88.2 Allergy status to sulfonamides; Z91.018 Allergy to other foods; Z91.048 Other nonmedicinal substance allergy status
CPT/HCPCS: 99211